=== PATIENT | male | born 1950 | race Caucasian/White ===

== ENCOUNTER 2019-02-05 13:47 | Day surgery (SDC) | payer MEDICARE ==
[2019-02-03 11:22] VITALS: BMI 30.3
[~2019-02-05 13:47] MED LIST: LACTATED RINGERS 1,000 ML IV SCH; LIDOCAINE 1% 20 ML VIAL (10MG/ML) FOR IV START INTRADERMA PRN
[2019-02-05 14:12] VITALS: TEMP 98.3
[2019-02-05] MEDS ORDERED: LIDOCAINE 1% INJ 10MG/ML (20 ML MDV) ONE (15:20)
[2019-02-05] MEDS ORDERED: PROPOFOL 10 MG/ML 20 ML VIAL IV ONE (15:20)
--- NOTE | 2019-02-05 15:50 | P.PCN ---
Date of Procedure: 02/05/19 Description of Procedure: BRIEF HISTORY: Patient is a pleasant 68-year-old male with multiple medical comorbidities who presents for outpatient upper endoscopy. The patient reports reflux which has been frequent since the beginning of the year. He was started on omeprazole 40 mg daily, however continues to report symptoms of regurgitation of stomach acid into his mouth which are occurring frequently. He denies any dysphagia or odynophagia. He denies any signs or symptoms of GI bleeding. PROCEDURE PERFORMED: Esophagogastroduodenoscopy with biopsy. PREOPERATIVE DIAGNOSIS: GERD. ESTIMATED BLOOD LOSS: Minimal. IV sedation per anesthesia. PROCEDURE: After informed consent was obtained, the patient was brought into the endoscopy unit. IV sedation was administered by Anesthesia under continuous monitoring. Initially the Olympus GIF-190 video endoscope was inserted into the mouth. Esophagus intubated without any difficulty. It was gradually advanced into the stomach and duodenum and carefully examined. The bulb and the second part of the duodenum appeared normal. The scope at this time was withdrawn to the stomach, adequately insufflated with air, and upon careful examination, mucosa of the antrum, body, cardia and the fundus appeared grossly normal except for diffuse p unctate erythema in the antrum and body suggestive of mild gastritis with biopsies taken. The scope was then withdrawn into the esophagus. The GE junction was located at 42 cm from the incisors and biopsies were taken given history of reflux. The esophagus appeared normal. There were no erosions or ulcerations seen and the patient tolerated the procedure well. IMPRESSION: 1. Mild gastritis, biopsied. 2. GE junction biopsied. RECOMMENDATIONS: The findings of this examination were discussed with the patient and his . Continue Prilosec therapy. Await pathology from biopsies. Have recommended the patient follow up in one to 2 weeks for results of biopsies and discussion on symptoms.
[2019-02-05 15:51] VITALS: RESP 18
[2019-02-05 16:07] VITALS: BP 149/70; PULSE 70
== END 2019-02-05 16:10 | disposition home or self-care (01) ==
LOC: ORWHC2ENDO 13:47
PROVIDERS: ATTEND Internal Medicine
DX: K21.0 Gastro-esophageal reflux disease with esophagitis (principal); K29.50 Unspecified chronic gastritis without bleeding; K31.9 Disease of stomach and duodenum, unspecified; Z79.82 Long term (current) use of aspirin; Z79.899 Other long term (current) drug therapy; I25.10 Atherosclerotic heart disease of native coronary artery without angina pectoris; I11.0 Hypertensive heart disease with heart failure; I50.9 Heart failure, unspecified; J44.9 Chronic obstructive pulmonary disease, unspecified; E78.5 Hyperlipidemia, unspecified; I25.2 Old myocardial infarction; E11.9 Type 2 diabetes mellitus without complications; Z90.49 Acquired absence of other specified parts of digestive tract
CPT/HCPCS: 88305; 43239; J2001; J2704

== ENCOUNTER 2019-06-01 20:20 | Emergency (ER) | payer MEDICARE ==
[2019-06-01 20:27] VITALS: BP 226/91; PULSE 60; RESP 18; TEMP 98.8
--- NOTE | 2019-06-01 21:20 | ED ---
Animal Bite HPI - General Chief Complaint: Animal Bite Stated Complaint: Tick Bite Time Seen by Provider: 06/01/19 20:47 Source: patient Mode of arrival: ambulatory Limitations: no limitations - History of Present Illness Initial Comments: Patient is 78-year-old male presents emergency Department with a tick bite. Patient reports that he noticed a tick bite earlier today on his forearm. Patient does have dogs living with him. Patient removed the tick and brought to the emergency department. Patient denies erythema or rash at the site of injury. Patient denies fever, nausea, vomiting, chest pain, chest tightness, chest palpitation, shortness of breath or arthralgias. Patient is suspecting that the organism is a dog tick. - Related Data Home Medications Medication Instructions Recorded Confirmed Aspirin 325 mg PO DAILY PRN 01/27/19 02/03/19 Macular Degeneration Vitamin 1 tab PO DIRECTED 01/27/19 02/05/19 Atenolol [Tenormin] 50 mg PO DAILY 02/03/19 02/05/19 Allergies Allergy/AdvReac Type Severity Reaction Status Date / Time No Known Allergies Allergy Verified 06/01/19 20:27 Review of Systems ROS Statement: Those systems with pertinent positive or pertinent negative responses have been documented in the HPI. ROS Other: All systems not noted in ROS Statement are negative. Past Medical History Past Medical History: Eye Disorder, GERD/Reflux, Hypertension Additional Past Medical History / Comment(s): dory eyes macular degeneration History of Any Multi-Drug Resistant Organisms: None Reported Past Surgical History: Cholecystectomy, Tonsillectomy Additional Past Surgical History / Comment(s): left caratacts Past Anesthesia/Blood Transfusion Reactions: No Reported Reaction Past Psychological History: No Psychological Hx Reported Smoking Status: Former smoker Past Alcohol Use History: None Reported Past Drug Use History: None Reported - Past Family History Mother Family Medical History: Cancer General Exam - General Exam Comments Initial Comments: General: Well-developed well-nourished distress HEENT: Normocephalic/atraumatic, PERLL, pharynx erythema, Neck: Supple, nontender, trachea midline Chest/Lungs: Normal respirations, no signs of respiratory distress clear to auscultation bilaterally no wheezes, rales, rhonchi Cardiac: Regular rate and rhythm, normal S1-S2, no murmurs rubs or gallops Abdomen/GI: Soft nontender, bowel sounds equal or quadrant x4, no guarding, no rebound no CVA tenderness Musculoskeletal: Nontender, full range of motion, no edema, strength equal bilaterally, Skin: Warmth, no rashes or lesions, no cyanosis or diaphoresis, approximately 2 mm small lesion where the tick was located on the skin Neurologic: AAO x 3, CN 2-12 intact, Psychiatric: Mood and affect normal, judgment normal Limitations: no limitations Course Vital Signs 06/01/19 20:25 Temperature 98.8 F Pulse Rate 60 Respiratory 18 Rate Blood Pressure 226/91 O2 Sat by Pulse 98 Oximetry Medical Decision Making - Medical Decision Making Patient is a 68-year-old male presents emergency Department with a doctor. Patient had already removed the tick and have brought for examination. The tick is all brown in color and it appears to be a toxic not a deer or wood tick. At this point I have low suspicion for possible Lyme disease infection. Patient will not be treated prophylactically for Lyme disease. Patient advised to return to emergency department for reevaluation if she develops a bull's-eye pattern rash, fever, chest palpitations or arthralgias. Patient advised to follow-up with primary care. Case discussed with physician. Disposition Clinical Impression: Tick bite Disposition: HOME SELF-CARE Condition: Stable Instructions (If sedation given, give patient instructions): Animal Bite (ED) Additional Instructions: Please follow for signs of infection such as fever, Bullseye pattern rash, chest palpitations or multiple joint aches. Please follow with primary care. Please return to emergency department if symptoms worsen. Is patient prescribed a controlled substance at d/c from ED?: No Referrals: Roger Mcmanus DO [Primary Care Provider] - 1-2 days Time of Disposition: 21:20
== END 2019-06-01 21:23 | disposition home or self-care (01) ==
LOC: EC 20:20
DX: S50.861A Insect bite (nonvenomous) of right forearm, initial encounter (principal); H35.30 Unspecified macular degeneration; I10 Essential (primary) hypertension; Z87.891 Personal history of nicotine dependence; Z79.899 Other long term (current) drug therapy; W57.XXXA Bitten or stung by nonvenomous insect and other nonvenomous arthropods, initial encounter
CPT/HCPCS: 99282

== ENCOUNTER → 2020-07-07 | Outpatient (CLI) | payer MEDICARE ==
--- NOTE | 2020-07-07 09:23 | FL ---
EXAMINATION TYPE: FL barium swallow DATE OF EXAM: 07/07/2020 CLINICAL HISTORY: GERD per order. History of recurrent epigastric pain despite attempts with differen t medication. History of endoscopy January 2019. TECHNIQUE: A double contrast esophagram is performed utilizing air and barium. A total of 19 second s of fluoroscopic time was utilized during procedure. 38 spot images saved to PACS. COMPARISON: None FINDINGS: The esophagus shows mild dysmotility with some abnormal secondary and tertiary contractions particularly when patient drinks laying prone. No evidence of fixed hiatal hernia or stricture note d. No suspicious intraluminal mass. No significant gastroesophageal reflux was seen during real time performance of this study. Cholecystectomy clips incidentally noted. IMPRESSION: Mild esophageal dysmotility otherwise unremarkable study.
== END | disposition home or self-care (01) ==
LOC: RADUSWWP 08:43
PROVIDERS: ATTEND Surgery Plastic and Reconstructive Surgery
DX: K22.4 Dyskinesia of esophagus (principal)
CPT/HCPCS: 74220

== ENCOUNTER 2020-09-01 06:53 | Day surgery (SDC) | payer MEDICARE ==
[2020-08-29 10:55] VITALS: BMI 30.3
--- NOTE | 2020-09-01 06:39 | P.GSHP ---
History of Present Illness H&P Date: 09/01/20 CHIEF COMPLAINT: GERD HISTORY OF PRESENT ILLNESS: The patient is a 69-year-old male who presents reports gastroesophageal reflux disease. Upper endoscopy was offered for further evaluation and management. PAST MEDICAL HISTORY: Please see list. PAST SURGICAL HISTORY: Please see list. MEDICATIONS: Please see list. ALLERGIES: Please see list. SOCIAL HISTORY: No illicit drug use FAMILY HISTORY: No reports of Crohn disease or ulcerative colitis. REVIEW OF ORGAN SYSTEMS: CONSTITUTIONAL: No reports of fevers or chills. GI: Denies any blood in stools or constipation. PHYSICAL EXAM: VITAL SIGNS: Stable GENERAL: Well-developed and pleasant in no acute distress. HEENT: No scleral icterus. Extraocular movements grossly intact. Moist buccal mucosa. NECK: Supple without lymphadenopathy. CHEST: Unlabored respirations. Equal bilateral excursions. CARDIOVASCULAR: Regular rate and rhythm. Distal 2+ pulses. ABDOMEN: Soft, nondistended. MUSCULOSKELETAL: No clubbing, cyanosis, or edema. ASSESSMENT: 1. Gastroesophageal reflux disease PLAN: 1. Recommend proceeding with an upper endoscopy Past Medical History Past Medical History: Eye Disorder, GERD/Reflux, Hypertension Additional Past Medical History / Comment(s): dory eyes macular degeneration History of Any Multi-Drug Resistant Organisms: None Reported Past Surgical History: Cholecystectomy, Tonsillectomy Additional Past Surgical History / Comment(s): left caratacts,EGD Past Anesthesia/Blood Transfusion Reactions: No Reported Reaction Smoking Status: Former smoker - Past Family History Mother Family Medical History: Cancer Medications and Allergies Home Medications Medication Instructions Recorded Confirmed Type Macular Degeneration Vitamin 1 tab PO DIRECTED 01/27/19 08/29/20 History atenoloL [Tenormin] 100 mg PO 0200 02/03/19 08/29/20 History Penicillin V Potassium [Pen Vee K] 500 mg PO QID 08/29/20 08/29/20 History Allergies Allergy/AdvReac Type Severity Reaction Status Date / Time No Known Allergies Allergy Verified 08/29/20 10:49
[~2020-09-01 06:53] MED LIST changes: -LIDOCAINE 1% 20 ML VIAL (10MG/ML) FOR IV START INTRADERMA PRN
[2020-09-01 07:26] VITALS: RESP 16; TEMP 97.3
[2020-09-01] MEDS ORDERED: LIDOCAINE 1% INJ 10MG/ML (20 ML MDV) ONE (08:01)
[2020-09-01] MEDS ORDERED: PROPOFOL 10 MG/ML 20 ML VIAL IV ONE (08:01)
--- NOTE | 2020-09-01 08:25 | P.PCN ---
Date of Procedure: 09/01/20 Description of Procedure: PREOPERATIVE DIAGNOSIS: Gastroesophageal reflux disease. Epigastric abdominal pain POSTOPERATIVE DIAGNOSIS: Gastroesophageal reflux disease. Epigastric abdominal pain Superficial gastric ulcer with recent bleeding Superficial duodenal ulcer with duodenitis without bleeding Gastroesophageal junction ulcer without bleeding OPERATION: Esophagogastroduodenoscopy with biopsies along antrum, duodenum, and GE junction SURGEON: Sarah Dominguez MD ANESTHESIA: MAC. INDICATIONS: The patient is a 69-year-old male who presents with a history of reflux disease and epigastric abdominal pain. Benefits and risks of the procedure were described. Informed consent was obtained. DESCRIPTION: The patient was brought into the endoscopy suite and laid in the left lateral decubitus position. An Olympus gastroscope was passed along the posterior oropharynx down to the distal esophagus where the squamocolumnar junction was encountered at 42 cm from the incisors. The stomach was entered and no bile reflux was found. Additional findings are listed below. Biopsies with cold forceps were obtained of the antrum. The first through third portion of the duodenum was examined. Retroflexion of the scope confirmed Hill grade 1 lower esophageal valve. The squamocolumnar junction demonstrated LA grade B erosive esophagitis. The stomach was desufflated. The patient tolerated the procedure well. FINDINGS: Squamocolumnar junction 42 cm from the incisors. Diaphragmatic hiatus at 42 cm. Hill grade 1 lower esophageal valve. LA grade B erosive esophagitis with ulceration Active duodenitis with superficial duodenal ulcers, 4 mm in size without bleeding. Chronic gastritis with recent bleed with superficial gastric ulcers and gastric body and antrum RECOMMENDATIONS: Start Carafate 1 g twice daily including omeprazole 40 mg daily Repeat upper endoscopy Plan - Discharge Summary Discharge Rx Participant: No New Discharge Prescriptions: New Sucralfate [Carafate] 1 gm PO BID #60 tablet Omeprazole [PriLOSEC] 40 mg PO DAILY #30 cap Continue Macular Degeneration Vitamin 1 tab PO DIRECTED atenoloL [Tenormin] 100 mg PO 0200 Penicillin V Potassium [Pen Vee K] 500 mg PO QID Discharge Medication List Macular Degeneration Vitamin 1 tab PO DIRECTED 01/27/19 [History] atenoloL [Tenormin] 100 mg PO 0200 02/03/19 [History] Penicillin V Potassium [Pen Vee K] 500 mg PO QID 08/29/20 [History] Omeprazole [PriLOSEC] 40 mg PO DAILY #30 cap 09/01/20 [Rx] Sucralfate [Carafate] 1 gm PO BID #60 tablet 09/01/20 [Rx] Follow up Appointment(s)/Referral(s): Sarah Dominguez MD [STAFF PHYSICIAN] - 09/13/20 Patient Instructions/Handouts: Diet for Stomach Ulcers and Gastritis (ED) Activity/Diet/Wound Care/Special Instructions: Avoid ibuprofen including NSAIDs history of ulcers Discharge Disposition: HOME SELF-CARE
[2020-09-01 08:38] VITALS: BP 152/70; PULSE 52
== END 2020-09-01 09:13 | disposition home or self-care (01) ==
LOC: ORWHC2ENDO 06:53
PROVIDERS: ATTEND Surgery Plastic and Reconstructive Surgery
DX: K25.4 Chronic or unspecified gastric ulcer with hemorrhage (principal); K26.4 Chronic or unspecified duodenal ulcer with hemorrhage; K29.80 Duodenitis without bleeding; K29.51 Unspecified chronic gastritis with bleeding; K21.00 Gastro-esophageal reflux disease with esophagitis, without bleeding; K22.11 Ulcer of esophagus with bleeding; H35.30 Unspecified macular degeneration; I10 Essential (primary) hypertension; Z90.49 Acquired absence of other specified parts of digestive tract; Z90.89 Acquired absence of other organs; Z98.42 Cataract extraction status, left eye; Z98.890 Other specified postprocedural states; Z87.891 Personal history of nicotine dependence; Z79.899 Other long term (current) drug therapy; Z97.2 Presence of dental prosthetic device (complete) (partial); Z80.9 Family history of malignant neoplasm, unspecified
CPT/HCPCS: 88305; 43239; J2001; J2704

== ENCOUNTER 2021-02-08 09:59 | Day surgery (SDC) | payer MEDICARE ==
[2021-02-03 12:51] VITALS: BMI 30.3
--- NOTE | 2021-02-08 04:09 | P.GSHP ---
History of Present Illness H&P Date: 02/08/21 CHIEF COMPLAINT: GERD HISTORY OF PRESENT ILLNESS: The patient is a 70-year-old male who presents reports gastroesophageal reflux disease. Upper endoscopy was offered for further evaluation and management. PAST MEDICAL HISTORY: Please see list. PAST SURGICAL HISTORY: Please see list. MEDICATIONS: Please see list. ALLERGIES: Please see list. SOCIAL HISTORY: No illicit drug use FAMILY HISTORY: No reports of Crohn disease or ulcerative colitis. REVIEW OF ORGAN SYSTEMS: CONSTITUTIONAL: No reports of fevers or chills. GI: Denies any blood in stools or constipation. PHYSICAL EXAM: VITAL SIGNS: Stable GENERAL: Well-developed and pleasant in no acute distress. HEENT: No scleral icterus. Extraocular movements grossly intact. Moist buccal mucosa. NECK: Supple without lymphadenopathy. CHEST: Unlabored respirations. Equal bilateral excursions. CARDIOVASCULAR: Regular rate and rhythm. Distal 2+ pulses. ABDOMEN: Soft, nondistended. MUSCULOSKELETAL: No clubbing, cyanosis, or edema. ASSESSMENT: 1. Gastroesophageal reflux disease PLAN: 1. Recommend proceeding with an upper endoscopy Past Medical History Past Medical History: Eye Disorder, GERD/Reflux, Hypertension Additional Past Medical History / Comment(s): dory eyes macular degeneration History of Any Multi-Drug Resistant Organisms: None Reported Past Surgical History: Cholecystectomy, Tonsillectomy Additional Past Surgical History / Comment(s): left caratacts,EGD Past Anesthesia/Blood Transfusion Reactions: No Reported Reaction Smoking Status: Former smoker - Past Family History Mother Family Medical History: Cancer Medications and Allergies Home Medications Medication Instructions Recorded Confirmed Type Macular Degeneration Vitamin 1 tab PO DIRECTED 01/27/19 02/03/21 History atenoloL [Tenormin] 100 mg PO 0200 02/03/19 02/03/21 History Sucralfate [Carafate] 1 gm PO ACHS #120 tab 09/27/20 02/03/21 Rx Omeprazole [PriLOSEC] 40 mg PO BID 02/03/21 02/03/21 History lisinopriL [Zestril] 20 mg PO HS 02/03/21 02/03/21 History Allergies Allergy/AdvReac Type Severity Reaction Status Date / Time No Known Allergies Allergy Verified 02/03/21 12:45
[~2021-02-08 09:59] MED LIST changes: +LIDOCAINE 1% (10MG/ML) FOR IV START INTRADERMA PRN
[2021-02-08 10:43] VITALS: TEMP 97.9
[2021-02-08] MEDS ORDERED: PROPOFOL 10 MG/ML 20 ML VIAL IV ONE (11:03)
[2021-02-08] MEDS ORDERED: LIDOCAINE 1% INJ 10MG/ML (20 ML MDV) ONE (11:03)
--- NOTE | 2021-02-08 11:27 | P.PCN ---
Date of Procedure: 02/08/21 Description of Procedure: PREOPERATIVE DIAGNOSIS: Gastric ulcers Gastritis Epigastric abdominal pain Gastroesophageal reflux disease POSTOPERATIVE DIAGNOSIS: Gastroesophageal reflux disease with esophagitis Gastritis Epigastric abdominal pain OPERATION: Esophagogastroduodenoscopy with biopsies along antrum and distal esophagus SURGEON: Sarah Dominguez MD ANESTHESIA: MAC. INDICATIONS: The patient is a 70-year-old male who presents with a history of reflux disease. Benefits and risks of the procedure were described. Informed consent was obtained. DESCRIPTION: The patient was brought into the endoscopy suite and laid in the left lateral decubitus position. An Olympus gastroscope was passed along the posterior oropharynx down to the distal esophagus where the squamocolumnar junction was encountered at 40 cm from the incisors. The stomach was entered and no bile reflux was found. Additional findings are listed below. Biopsies with cold forceps were obtained of the antrum. The first through third portion of the duodenum was examined and unremarkable. Retroflexion of the scope confirmed Hill grade 2 lower esophageal valve. The squamocolumnar junction demonstrated LA grade C erosive esophagitis. The stomach was desufflated. The patient tolerated the procedure well. FINDINGS: Squamocolumnar junction 40 cm from the incisors. Diaphragmatic hiatus at 40 cm. Hill grade 4 lower esophageal valve. LA grade C erosive esophagitis with cold forceps biopsies obtained from distal esophagus No active duodenitis. Chronic gastritis RECOMMENDATIONS: Upper endoscopy as needed. For epigastric abdominal pain, manometry recommended Plan - Discharge Summary Discharge Rx Participant: No New Discharge Prescriptions: Continue Macular Degeneration Vitamin 1 tab PO DIRECTED atenoloL [Tenormin] 100 mg PO 0200 Sucralfate [Carafate] 1 gm PO ACHS #120 tab lisinopriL [Zestril] 20 mg PO HS Omeprazole [PriLOSEC] 40 mg PO BID Discharge Medication List Macular Degeneration Vitamin 1 tab PO DIRECTED 01/27/19 [History] atenoloL [Tenormin] 100 mg PO 0200 02/03/19 [History] Sucralfate [Carafate] 1 gm PO ACHS #120 tab 09/27/20 [Rx] Omeprazole [PriLOSEC] 40 mg PO BID 02/03/21 [History] lisinopriL [Zestril] 20 mg PO HS 02/03/21 [History] Follow up Appointment(s)/Referral(s): Sarah Dominguez MD [STAFF PHYSICIAN] - 02/21/21 Patient Instructions/Handouts: Gastritis (ED), Diet for Stomach Ulcers and Gastritis (GEN) Discharge Disposition: HOME SELF-CARE
[2021-02-08 11:43] VITALS: BP 132/76; PULSE 47; RESP 18
== END 2021-02-08 12:14 | disposition home or self-care (01) ==
LOC: ORWHC2ENDO 09:59
PROVIDERS: ATTEND Surgery Plastic and Reconstructive Surgery
DX: K21.00 Gastro-esophageal reflux disease with esophagitis, without bleeding (principal); K22.10 Ulcer of esophagus without bleeding; K29.50 Unspecified chronic gastritis without bleeding; K44.9 Diaphragmatic hernia without obstruction or gangrene; H35.30 Unspecified macular degeneration; I10 Essential (primary) hypertension; Z90.49 Acquired absence of other specified parts of digestive tract; Z90.89 Acquired absence of other organs; Z98.42 Cataract extraction status, left eye; Z98.890 Other specified postprocedural states; Z87.891 Personal history of nicotine dependence; Z79.899 Other long term (current) drug therapy; Z97.2 Presence of dental prosthetic device (complete) (partial); Z80.9 Family history of malignant neoplasm, unspecified
CPT/HCPCS: 88305; 43239; J2001; J2704

== ENCOUNTER → 2021-03-15 | Outpatient (CLI) | payer MEDICARE ==
[2021-03-15 14:25] LABS: HCT 41.9 % (39.0-53.0); HGB 14.1 gm/dL (13.0-17.5); MCH 30.6 pg (25.0-35.0); MCHC 33.6 g/dL (31.0-37.0); MCV 90.9 fL (80.0-100.0); Mean Platelet Volume 8.1; Platelet Count 197 k/uL (150-450); WBC 8.4 k/uL (3.8-10.6)
== END | disposition home or self-care (01) ==
LOC: LABPAT 13:44
PROVIDERS: ATTEND Surgery Plastic and Reconstructive Surgery
DX: Z01.818 Encounter for other preprocedural examination (principal)
CPT/HCPCS: 85027

== ENCOUNTER 2021-03-17 10:24 | Observation (INO) | payer MEDICARE ==
--- NOTE | 2021-03-17 05:45 | P.GSHP ---
History of Present Illness H&P Date: 03/17/21 CHIEF COMPLAINT: Paraesophageal hiatal hernia with gastroesophageal reflux disease. HISTORY OF PRESENT ILLNESS: The patient is a 70-year-old male who presents with paraesophageal hiatal hernia. He has completed an esophageal manometry including upper endoscopy workup. Now he presents for surgical intervention. PAST MEDICAL HISTORY: Please see list. PAST SURGICAL HISTORY: Please see list. MEDICATIONS: Please see list. ALLERGIES: Please see list. SOCIAL HISTORY: No illicit drug use FAMILY HISTORY: No reports of Crohn disease or ulcerative colitis. REVIEW OF ORGAN SYSTEMS: CONSTITUTIONAL: No reports of fevers or chills. GI: Denies any blood in stools or constipation. PHYSICAL EXAM: VITAL SIGNS: Stable GENERAL: Well-developed pleasant and in no acute distress. HEENT: No scleral icterus. Extraocular movements grossly intact. Moist buccal mucosa. NECK: Supple without lymphadenopathy. CHEST: Unlabored respirations. Equal bilateral excursions. CARDIOVASCULAR: Regular rate and rhythm. Distal 2+ pulses. ABDOMEN: Soft, nondistended. No peritoneal signs. MUSCULOSKELETAL: No clubbing, cyanosis, or edema. SKIN: Well-perfused. Good skin turgor. MANOMETRY: Shows no evidence of achalasia or scleroderma. Presence of esophagogastric junction outflow obtruction ECHO: Completed at [facility] 2020 with stress test completed. ASSESSMENT: 1. Diaphragmatic paraesophageal hiatal hernia with severe gastroesophageal reflux disease. PLAN: 1. Recommend proceeding with a robotic paraesophageal hiatal hernia with possible mesh. 2. Benefits and risks of surgical intervention was discussed including possibility of open technique. 3. Inpatient hospitalization recommended of 2 nights 4. DVT prophylaxis. 5. Antibiotic prophylaxis. 6. He has also completed a very low caloric high-protein diet to address underlying hepatomegaly. 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,dory eyes macular degeneration,gastric ulcers History of Any Multi-Drug Resistant Organisms: None Reported Past Surgical History: Cholecystectomy, Tonsillectomy Additional Past Surgical History / Comment(s): left caratacts,EGDs Past Anesthesia/Blood Transfusion Reactions: Previous Problems w/ Anesthesia Additional Past Anesthesia/Blood Transfusion Reaction / Comment(s): has general achiness after anesthesia,no hx blood transfusion Smoking Status: Former smoker - Past Family History Mother Family Medical History: Cancer Medications and Allergies Home Medications Medication Instructions Recorded Confirmed Type Macular Degeneration Vitamin 1 tab PO DIRECTED 01/27/19 03/13/21 History atenoloL [Tenormin] 100 mg PO 0200 02/03/19 03/13/21 History Omeprazole [PriLOSEC] 40 mg PO QAM 02/03/21 03/13/21 History lisinopriL [Zestril] 20 mg PO HS 02/03/21 03/13/21 History Sucralfate [Carafate] 1 gm PO BID 02/28/21 03/13/21 History Allergies Allergy/AdvReac Type Severity Reaction Status Date / Time No Known Allergies Allergy Verified 03/13/21 10:26
[~2021-03-17 10:24] MED LIST changes: +CHLORHEXIDINE GLUCONATE 15 ML CUP MUCOUS MEM PRN; +DEXAMETHASONE SOD PHOSPHATE 4 MG/ML 1 ML VIAL IV ONE; +GABAPENTIN 300 MG CAP PO PRN; +HEPARIN SODIUM,PORCINE/PF 5,000 UNIT/0.5 ML SYRINGE SQ PRN; +HYDROmorphone 0.5 MG/0.5 ML SYRINGE IVP PRN; -LACTATED RINGERS 1,000 ML IV SCH; +MELOXICAM 7.5 MG TAB PO PRN; +MIDAZOLAM 2 MG/2 ML VIAL IV PRN; +ONDANSETRON 4 MG/2 ML VIAL IVP ONE; +PANTOPRAZOLE 40 MG/10 ML VIAL IVP PRN; +TAMSULOSIN 0.4 MG CAP.ER.24H PO PRN
[2021-03-17] MEDS: LACTATED RINGERS 1,000 ML IV SCH (11:35)
[2021-03-17 11:36] LABS: Basophils # (A) 0.1 k/uL (0-0.2); Basophils % (A) 1 %; Eosinophils # (A) 0.5 k/uL (0-0.7); Eosinophils % (A) 6 %; HGB 15.2 gm/dL (13.0-17.5); Lymphocytes # (A) 2.8 k/uL (1.0-4.8); Lymphocytes % (A) 34 %; MCHC 34.6 g/dL (31.0-37.0); MCV 89.8 fL (80.0-100.0); Mean Platelet Volume 8.2; Monocytes # (A) 0.5 k/uL (0-1.0); Monocytes % (A) 6 %; Neutrophils # (A) 4.1 k/uL (1.3-7.7); Neutrophils % (A) 50 %; Platelet Count 211 k/uL (150-450); RDW 12.8 % (11.5-15.5); WBC 8.3 k/uL (3.8-10.6)
[2021-03-17] MEDS: ACETAMINOPHEN TAB 500 MG TAB PO PRN (11:44)
[2021-03-17] MEDS ORDERED: ePHEDrine SULFATE/0.9% NACL/PF 50 MG/5 ML SYRINGE IV ONE (11:53)
[2021-03-17] MEDS ORDERED: fentaNYL (PF) 50 MCG/ML 2 ML AMP ONE (11:53)
[2021-03-17] MEDS ORDERED: GLYCOPYRROLATE 0.2 MG/ML 2 ML VIAL ONE (11:53)
[2021-03-17] MEDS ORDERED: ROCURONIUM 10 MG/ML (5 ML VIAL) IV ONE (11:53)
[2021-03-17] MEDS ORDERED: NEOSTIGMINE 1 MG/ML 10 ML VIAL ONE (11:53)
[2021-03-17] MEDS ORDERED: PROPOFOL 10 MG/ML 20 ML VIAL IV ONE (11:53)
[2021-03-17] MEDS ORDERED: LIDOCAINE 1% INJ 10MG/ML (20 ML MDV) ONE (11:53)
[2021-03-17] MEDS ORDERED: ONDANSETRON 4 MG/2 ML VIAL ONE (11:53)
[2021-03-17] MEDS ORDERED: SUCCINYLCHOLINE CHLORIDE VIAL 200 MG/10 ML VIAL IV ONE (11:53)
[2021-03-17] MEDS ORDERED: MIDAZOLAM 2 MG/2 ML VIAL ONE (11:53)
[2021-03-17 11:54] LABS: Albumin 4.4 g/dL (3.5-5.0); Calcium 9.6 mg/dL (8.4-10.2); Potassium 4.3 mmol/L (3.5-5.1); Total Bilirubin 0.8 mg/dL (0.2-1.3); Total Protein 7.5 g/dL (6.3-8.2)
[2021-03-17] MEDS ORDERED: LIDOCAINE 1%-EPI 1:100,000 20 ML VIAL SQ ONE (11:58)
[2021-03-17] MEDS ORDERED: LACTATED RINGERS 1,000 ML IV ONE (14:00)
[2021-03-17] MEDS ORDERED: diphenhydrAMINE 50 MG/ML 1 ML VIAL IVP PRN (14:18)
[2021-03-17] MEDS ORDERED: HYDROmorphone 1 MG/ML 1 ML SYRINGE IVP PRN (14:18)
[2021-03-17] MEDS ORDERED: NALOXONE 0.4 MG/ML 1 ML VIAL IV PRN (14:18)
[2021-03-17] MEDS ORDERED: HYOSCYAMINE ORAL DROPS 1.875 MG/15 ML BOTTLE PO PRN (14:18)
[2021-03-17] MEDS ORDERED: SODIUM CHLORIDE 0.9% 1,000 ML IV ONE (14:24)
[2021-03-17] MEDS ORDERED: DEXAMETHASONE SOD PHOSPHATE 10 MG/ML 1 ML VIAL IV PRN (14:24)
[2021-03-17 15:30] VITALS: BMI 30.5
[2021-03-17] MEDS ORDERED: ACETAMINOPHEN IV (For NPO) 1,000 MG in EMPTY BAG 1 BAG IVPB ONE (15:30)
[2021-03-17] MEDS: ALBUTEROL NEBULIZED 2.5 MG/3 ML INHALATION SCH ×2 (15:57→20:15)
--- NOTE | 2021-03-17 16:34 | FL ---
EXAMINATION TYPE: FL esophagus cervic/pharynx DATE OF EXAM: 03/17/2021 LIMITED Esophagram: CLINICAL HISTORY: Recent fundoplication TECHNIQUE: Limited esophagram is performed utilizing Omnipaque. Fluoroscopy time: 73 seconds Images: 17 FINDINGS: The patient swallowed contrast without difficulty or delay. Esophagus dilates to normal ca liber is normal contour to the distal esophagus. Note is made of some floating debris within the esop hagus during the exam Tertiary contractions are evident. There is moderate to severe hesitancy of contrast passing through the postsurgical mediastinum. No extravasation of contrast is evident.. IMPRESSION: No evidence of leak or significant obstruction status post Dwayne fundoplication surgery.
[2021-03-17] MEDS: 0.9% NACL WITH KCL 20 MEQ/L 1,000 ML IV SCH ×2 (17:20→21:43)
[2021-03-17] MEDS ORDERED: KETOROLAC 15 MG/ML 1 ML VIAL IVP SCH (18:00)
[2021-03-17] MEDS: METOCLOPRAMIDE 5 MG/ML 2 ML VIAL IVP SCH (18:10)
[2021-03-17] MEDS: ONDANSETRON 4 MG/2 ML VIAL IVP SCH (18:10)
[2021-03-17] MEDS: SIMETHICONE 40 MG/0.6 ML DROPS 2,000 MG/30 ML BOTTLE PO SCH (18:11)
[2021-03-17] MEDS: DEXAMETHASONE SOD PHOSPHATE 4 MG/ML 1 ML VIAL IV SCH (18:12)
[2021-03-17] MEDS ORDERED: lisinopriL 20 MG TAB PO SCH (21:00)
[2021-03-18] MEDS: SIMETHICONE 40 MG/0.6 ML DROPS 2,000 MG/30 ML BOTTLE PO SCH ×3 (01:46→11:58)
[2021-03-18] MEDS: DEXAMETHASONE SOD PHOSPHATE 4 MG/ML 1 ML VIAL IV SCH ×3 (01:46→11:56)
[2021-03-18] MEDS: ONDANSETRON 4 MG/2 ML VIAL IVP SCH ×3 (01:46→11:47)
[2021-03-18] MEDS: METOCLOPRAMIDE 5 MG/ML 2 ML VIAL IVP SCH ×3 (01:46→11:56)
[2021-03-18] MEDS ORDERED: atenoloL 50 MG TAB PO SCH (02:00)
[2021-03-18] MEDS: 0.9% NACL WITH KCL 20 MEQ/L 1,000 ML IV SCH (04:37)
[2021-03-18] MEDS: LACTATED RINGERS 1,000 ML IV SCH (05:36)
[2021-03-18 06:44] LABS: Basophils % (A) 0 %; Eosinophils % (A) 0 %; HCT 41.8 % (39.0-53.0); HGB 13.9 gm/dL (13.0-17.5); Lymphocytes # (A) 1.2 k/uL (1.0-4.8); Lymphocytes % (A) 10 %; MCH 30.6 pg (25.0-35.0); MCHC 33.4 g/dL (31.0-37.0); MCV 91.8 fL (80.0-100.0); Mean Platelet Volume 8.6; Monocytes # (A) 0.5 k/uL (0-1.0); Monocytes % (A) 5 %; Neutrophils # (A) 9.7 k/uL (1.3-7.7); Neutrophils % (A) 85 %; Platelet Count 211 k/uL (150-450); RBC 4.56 m/uL (4.30-5.90); WBC 11.5 k/uL (3.8-10.6)
[2021-03-18] MEDS ORDERED: 0.9% NACL WITH KCL 20 MEQ/L 1,000 ML IV SCH (08:00)
[2021-03-18] MEDS: ALBUTEROL NEBULIZED 2.5 MG/3 ML INHALATION SCH ×3 (08:52→16:23)
[2021-03-18] MEDS ORDERED: PANTOPRAZOLE 40 MG/10 ML VIAL IV SCH (09:00)
[2021-03-18] MEDS ORDERED: ENOXAPARIN 40 MG/0.4 ML SYRINGE SQ SCH (09:00)
[2021-03-18 09:13] LABS: African American GFR (CKD) 64.5 (60.0-200.0); Anion Gap 10.1 mmol/L (4.00-12.00); Calcium 8.6 mg/dL (8.7-10.3); Carbon Dioxide 25.9 mmol/L (21.6-31.8); Magnesium 1.9 mg/dL (1.5-2.4); Non-African American GFR(CKD) 55.7 (60.0-200.0); Phosphorus 2.6 mg/dL (2.4-5.1); Potassium 5.1 mmol/L (3.5-5.5)
[2021-03-18 12:14] VITALS: BP 167/78; PULSE 53; RESP 16; TEMP 97.3
[2021-03-18] MEDS ORDERED: ACETAMINOPHEN TAB 500 MG TAB PO PRN (13:52)
--- NOTE | 2021-03-18 14:00 | P.OP ---
Date of Procedure: 03/18/21 Description of Procedure: SURGEON: HEIDI HORTON MD PREOPERATIVE DIAGNOSES: 1. Symptomatic paraesophageal diaphragmatic hiatal hernia 2. Gastroesophageal reflux disease. 3. Hypertensive heart disease 4. History of gastric ulcers 5. Esophageal dysmotility with ineffective esophageal motility 6. Dysphagia 7. Atypical chest pain 8. Esophagogastro junction obstruction POSTOPERATIVE DIAGNOSES: 1. Paraesophageal midline diaphragmatic hernia, 3 cm, without incarceration. 2. Gastroesophageal reflux disease. 3. Hypertensive heart disease 4. History of gastric ulcers 5. Esophageal dysmotility with ineffective esophageal motility 6. Dysphagia 7. Atypical chest pain 8. Mediastinal lipoma 9. Esophagogastro junction obstruction OPERATION: 1. Robotic-assisted da Usha Xi laparoscopic repair of incarcerated paraesophageal hiatal hernia, 4 x 6 cm, with [place] Biopatch A 8 x 8 cm. 2. Intraoperative esophagogastroduodenoscopy 3. Placement of 56-Y[place]i bougie for esophageal dysmotility ANESTHESIA: General with local anesthetic. ESTIMATED BLOOD LOSS: 5 mL SPECIMENS REMOVED: None COMPLICATIONS: None. Condition: stable Disposition: floor FINDINGS: 1. Midline incarcerated paraesophageal hiatal hernia 4 x 6 cm 2. Intraoperative upper endoscopy confirms complete closure of hiatal hernia from Hill grade 3 to Hill grade 1 3. Intraesophageal length over 2 cm INDICATIONS: The patient is a 70 year-old male who presents withgastroesophageal reflux disease poorly controlled despite medications, and a symptomatic diaphragmatic hiatal hernia. Preoperative workup including upper endoscopy demonstrated a sliding hiatal hernia. The patient completed an esophageal manometry. Given the severity of symptoms, the patient had elected for surgical intervention. Benefits and risks including bleeding, infection, recurrence, dysphagia, injury to the lung, need for further surgery was described at length. Informed consent was obtained. DESCRIPTION: The patient was brought into the operating room and placed in supine position. Preoperatively the patient had received heparin subcutaneously for DVT prophylaxis. After general induction, the abdomen was prepped and draped in standard sterile fashion. The patient had previously voided prior to coming to the opera ting room. Ioban draping was placed along the abdomen. A timeout protocol was confirmed with the surgical team, for which the patient's name, procedure to be performed including DVT prophylaxis with bilateral SCDs, and preoperative antibiotics were also confirmed. A robotic da Usha Xi system was prepped and primed. At 12 cm from the xiphoid to just below the umbilicus, proposed port sites were marked with indelible marker along the left axillary line, left mid-clavicular line with each ports were marked 10 cm from each other. A 5 mm 0 degrees laparoscopic trocar entry was performed along the left upper quadrant. The abdomen was insufflated to 15 mmHg pressure was tolerated well. Diagnostic laparoscopy demonstrated no injury to bowel, viscera, or mesentery. No injury had occurred to the small bowel or viscera. The liver was smooth consistent with two-week high-protein low-carb diet. Previous trochar sites from cholecystectomy were used. Next, one 8 mm robotic port was placed along the right upper abdomen. An 8-mm port was were placed along the right lateral lateral abdominal wall. The camera 8-mm port was maintained along the epigastrium. Another 12 mm port was placed along the left upper abdominal wall after exchanging the 5 mm port. Please note that the ports were placed at least 20 cm away from the target anatomy. Care was taken to check that each robotic arm were safely away from collision with the bed or the patient. At the epigastrium, a medium sized Raudel liver retractor was placed under direct visualization with the [employer] Pricing Coordinator placed under the right shoulder of the patient. All robotic arms were used. The patient was repositioned in reverse Trendelenburg position at 21-degrees after lowering the bed. The robot was docked above the right side of the patient. Using a grasper for arm 3, a grasper for arm 1, including vessel sealer for arm 2, the robotic system was docked and primed as described. Instruments were interchanged by the oncology physician assistant. I had sat at the console. Moderate dense intra-abdominal fat was found along the GE junction. The gastrohepatic ligament was cleaved using a vessel sealer. Next, the phrenoesophageal ligament was mobilized and the distal esophagus was mobilized circumferentially. The left and right crura was identified. Circumferentially, the hernia sac was excised and brought into the peritoneal cavity. Moderate dissection into the mediastinum was performed to release the esophagus into the abdominal cavity. The paraesophageal hiatal hernia sac was also incised and divided from the esophagus. Care was taken to avoid any gastrotomy. The measured defect was consistent with 6 cm axial length and 4 cm in width. After dissection, the distal esophagus of 2+ cm was brought into the abdominal cavity. Esophagogastro junction was caused by a mediastinal tumor 3 cm that was cleared from the mediastinum and please with into the abdominal cavity. Once the hiatus and crura was dissected, 2-0 VLOC nonabsorbable suture was placed to reapproximate the diaphragmatic hiatus posteriorly. To buttress the repair, a [place] Biopatch A was prepared along the back table and cut in half of a yu-hole fashion as to reinforce the repair as an underlay. The mesh was placed along the crural repair and tagged using horizontal mattress sutures using 2-0 VLOC. I went to the head of the bed to perform intraoperative esophagogastroduodenoscopy and placement of a 56Fr bougie. The bougie was passed along the posterior oropharynx into the stomach to address pre-existing esophageal dysmotility for 2 minutes then removed. An Olympus gastroscope was passed through posterior oropharynx. Retroflexion of the scope confirmed a Hill grade 1 lower esophageal valve. 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 The stomach had been desufflated. No evidence of leaks were found of the esophagus or stomach. The GI tract with desufflated This concluded the endoscopic portion of the case. The robot was undocked from the patient. I re-scrubbed into the case. All instruments and pneumoperitoneum and specimens were evacuated from the abdominal cavity. Incisions were reapproximated using 4-0 Monocryl in an interrupted subcuticular fashion. Liquid glue was applied to the skin. Local anesthetic was infiltrated in all wounds for postop analgesia. At the end of the procedure, needle, sponge, and instrument count was verified correct by the surgical sales representative. The patient had tolerated the procedure well and was taken to the postanesthesia unit in stable condition.
[2021-03-18] MEDS: ACETAMINOPHEN TAB 500 MG TAB PO PRN (14:04)
--- NOTE | 2021-03-18 14:11 | P.DS ---
Providers Date of admission: 03/17/21 14:19 Expected date of discharge: 03/18/21 Attending physician: Sarah Dominguez Consults: 03/17/21 05:49 Consult Physician Routine Consulting Provider: [facility] Consult Reason/Comments: [facility] Do you want consulting provider notified?: Yes Primary care physician: Roger Mcmanus - Discharge Diagnosis(es) (1) Esophagogastric junction outflow obstruction Current Visit: Yes Status: Acute (2) Gastroesophageal reflux Current Visit: Yes Status: Acute (3) Hypertensive heart disease Current Visit: Yes Status: Acute (4) Incarcerated hiatal hernia Current Visit: Yes Status: Acute Hospital Course: POSTOPERATIVE DIAGNOSES: 1. Paraesophageal midline diaphragmatic hernia 4 x 6 cm with incarceration. 2. Gastroesophageal reflux disease. 3. Hypertensive heart disease 4. History of gastric ulcers 5. Esophageal dysmotility with ineffective esophageal motility 6. Dysphagia 7. Atypical chest pain 8. Mediastinal lipoma 9. Esophagogastro junction obstruction COURSE: The patient is a 70 year-old male who presents withgastroesophageal reflux disease poorly controlled despite medications, and a symptomatic diaphragmatic hiatal hernia. Preoperative workup including upper endoscopy demonstrated a sliding hiatal hernia. The patient completed an esophageal manometry. Given the severity of symptoms, the patient had elected for surgical intervention. He underwent robotic repair of incarcerated paraesophageal hiatal hernia. Postoperatively, he had an esophagram demonstrating mild obstruction. Patient was tolerating liquids without any dysphagia. He reports his pre- existing atypical chest pain had resolved following surgery. PHYSICAL EXAM: VITAL SIGNS: Stable GENERAL: Well-developed pleasant and in no acute distress. HEENT: No scleral icterus. Extraocular movements grossly intact. Moist buccal mucosa. NECK: Supple without lymphadenopathy. CHEST: Unlabored respirations. Equal bilateral excursions. CARDIOVASCULAR: Regular rate and rhythm. Distal 2+ pulses. ABDOMEN: Incisions intact. MUSCULOSKELETAL: No clubbing, cyanosis, or edema. SKIN: Well-perfused. Good skin turgor. BARIUM SWALLOW: Independent review demonstrating contrast through the GE junction serosa stomach. No recurrent hiatal hernia identified. Presence of tertiary contractions noted. This is my independent interpretation. ASSESSMENT: 1. Diaphragmatic paraesophageal hiatal hernia with incarceration. PLAN: 1. Discharge home. Discharge diet completely reviewed. 2. All questions addressed. Vital Signs Temp 97.3 F L 03/18/21 11:50 Pulse 53 L 03/18/21 11:50 Resp 16 03/18/21 11:50 BP 167/78 03/18/21 11:50 Pulse Ox 98 03/18/21 11:50 Intake & Output 03/17/21 03/18/21 03/18/21 18:59 06:59 18:59 Intake Total 1850 2170 Output Total 5 Balance 1845 2170 Weight 105 kg 105 kg Intake: IV 1850 Intake, IV Titration 1850 Amount 0.9% NaCl with KCl 20 Meq 1650 /l 1,000 ml @ 150 mls/hr IV .[id number] RAJANI Rx#: [id number] ceFAZolin 2 gm In Sodium 200 Chloride 0.9% 50 ml @ 100 mls/hr IVPB Q8H RAJANI Rx#: [id number] Oral 320 Output: Estimated Blood Loss 5 Other: # Voids 3 Laboratory Last Values WBC 11.5 k/uL (3.8-10.6) H 03/18/21 04:54 RBC 4.56 m/uL (4.30-5.90) 03/18/21 04:54 Hgb 13.9 gm/dL (13.0-17.5) 03/18/21 04:54 Hct 41.8 % (39.0-53.0) 03/18/21 04:54 MCV 91.8 fL (80.0-100.0) 03/18/21 04:54 MCH 30.6 pg (25.0-35.0) 03/18/21 04:54 MCHC 33.4 g/dL (31.0-37.0) 03/18/21 04:54 RDW 13.0 % (11.5-15.5) 03/18/21 04:54 Plt Count 211 k/uL (150-450) 03/18/21 04:54 MPV 8.6 03/18/21 04:54 Neutrophils % 85 % 03/18/21 04:54 Lymphocytes % 10 % 03/18/21 04:54 Monocytes % 5 % 03/18/21 04:54 Eosinophils % 0 % 03/18/21 04:54 Basophils % 0 % 03/18/21 04:54 Neutrophils # 9.7 k/uL (1.3-7.7) H 03/18/21 04:54 Lymphocytes # 1.2 k/uL (1.0-4.8) 03/18/21 04:54 Monocytes # 0.5 k/uL (0-1.0) 03/18/21 04:54 Eosinophils # 0.0 k/uL (0-0.7) 03/18/21 04:54 Basophils # 0.0 k/uL (0-0.2) 03/18/21 04:54 Sodium 139 mmol/L (135-145) 03/18/21 04:54 Potassium 5.1 mmol/L (3.5-5.5) 03/18/21 04:54 Chloride 103 mmol/L (96-109) 03/18/21 04:54 Carbon Dioxide 25.9 mmol/L (21.6-31.8) 03/18/21 04:54 Anion Gap 10.10 mmol/L (4.00-12.00) 03/18/21 04:54 BUN 23.0 mg/dL (9.0-27.0) 03/18/21 04:54 Creatinine 1.3 mg/dL (0.6-1.5) 03/18/21 04:54 Est GFR (CKD-EPI)AfAm 64.5 (60.0-200.0) 03/18/21 04:54 Est GFR (CKD-EPI)NonAf 55.7 (60.0-200.0) L 03/18/21 04:54 Glucose 102 mg/dL (74-99) H 03/17/21 11:25 Calcium 8.6 mg/dL (8.7-10.3) L 03/18/21 04:54 Phosphorus 2.6 mg/dL (2.4-5.1) 03/18/21 04:54 Magnesium 1.9 mg/dL (1.5-2.4) 03/18/21 04:54 Total Bilirubin 0.8 mg/dL (0.2-1.3) 03/17/21 11:25 AST 31 U/L (17-59) 03/17/21 11:25 ALT 24 U/L (4-49) 03/17/21 11:25 Alkaline Phosphatase 53 U/L (38-126) 03/17/21 11:25 Total Protein 7.5 g/dL (6.3-8.2) 03/17/21 11:25 Albumin 4.4 g/dL (3.5-5.0) 03/17/21 11:25 Coronavirus (PCR) Not Detected (Not Detectd) 03/17/21 14:17 Procedures: OPERATION: 1. Robotic-assisted da Usha Xi laparoscopic repair of incarcerated paraesophageal hiatal hernia, 4 x 6 cm, with [place] Biopatch A 8 x 8 cm. 2. Intraoperative esophagogastroduodenoscopy 3. Placement of 56-[place] bougie for esophageal dysmotility ANESTHESIA: General with local anesthetic. ESTIMATED BLOOD LOSS: 5 mL SPECIMENS REMOVED: None COMPLICATIONS: None. Condition: stable Disposition: floor FINDINGS: 1. Midline incarcerated paraesophageal hiatal hernia 4 x 6 cm 2. Intraoperative upper endoscopy confirms complete closure of hiatal hernia from Hill grade 3 to Hill grade 1 3. Intraesophageal length over 2 cm Patient Condition at Discharge: Good Plan - Discharge Summary Discharge Rx Participant: No New Discharge Prescriptions: New Simethicone 40 mg/0.6 ml Drops [Mylicon Drops] 80 mg PO Q6HR ml Simethicone 40 mg/0.6 ml Drops [Mylicon Drops] 80 mg PO Q6HR PRN #30 ml PRN Reason: Abdominal Distention Acetaminophen Oral Susp [Tylenol Oral Susp] 500 mg PO Q4-6H PRN #400 ml PRN Reason: Pain Continue Macular Degeneration Vitamin 1 tab PO DIRECTED atenoloL [Tenormin] 100 mg PO 0200 lisinopriL [Zestril] 20 mg PO HS Discontinued Omeprazole [PriLOSEC] 40 mg PO QAM Sucralfate [Carafate] 1 gm PO BID Discharge Medication List Macular Degeneration Vitamin 1 tab PO DIRECTED 01/27/19 [History] atenoloL [Tenormin] 100 mg PO 0200 02/03/19 [History] lisinopriL [Zestril] 20 mg PO HS 02/03/21 [History] Acetaminophen Oral Susp [Tylenol Oral Susp] 500 mg PO Q4-6H PRN #400 ml 03/18/21 [Rx] Simethicone 40 mg/0.6 ml Drops [Mylicon Drops] 80 mg PO Q6HR ml 03/18/21 [Rx] Simethicone 40 mg/0.6 ml Drops [Mylicon Drops] 80 mg PO Q6HR PRN #30 ml 03/18/21 [Rx] Follow up Appointment(s)/Referral(s): Sarah Dominguez MD [STAFF PHYSICIAN] - 03/21/21 (Please call to confirm time) Patient Instructions/Handouts: Laparoscopic Hiatal Hernia Repair (DC) Activity/Diet/Wound Care/Special Instructions: Liquid diet only for 2 weeks until March 31 No lifting over 4 pounds in 4 weeks, April 16April shower No soaking in bath tubs for 2 weeks, March 31 Please notify your surgeon if you develop nausea and vomiting including new onset of abdominal pain. Please ambulate at all times. Use Simethicone, Gas-X, Tylenol and ibuprofen or Aleve scheduled for the next 24-48 hours for best pain relief. Use ice along incisions for the today to prevent swelling. Please open, cut, crush pills larger than the size of a tic tack No carbonated beverages. No straws. Do not remove scopolamine patch for 3 days, if present Discharge Disposition: HOME SELF-CARE
== END 2021-03-18 17:22 | disposition home or self-care (01) ==
LOC: OR 10:24 → 5NMEDONC 14:02 → INTOOBSV 14:19 → OR 14:19 → 5NMEDONC 14:19
PROVIDERS: ADMIT Surgery Plastic and Reconstructive Surgery; ATTEND Surgery Plastic and Reconstructive Surgery
DX: K44.0 Diaphragmatic hernia with obstruction, without gangrene (principal); K22.2 Esophageal obstruction; K21.9 Gastro-esophageal reflux disease without esophagitis; K22.4 Dyskinesia of esophagus; R16.0 Hepatomegaly, not elsewhere classified; R07.89 Other chest pain; I11.9 Hypertensive heart disease without heart failure; D17.79 Benign lipomatous neoplasm of other sites; H35.30 Unspecified macular degeneration; Z79.899 Other long term (current) drug therapy; Z87.11 Personal history of peptic ulcer disease; Z90.49 Acquired absence of other specified parts of digestive tract; Z87.891 Personal history of nicotine dependence; Z80.9 Family history of malignant neoplasm, unspecified
CPT/HCPCS: 43282; 43450; 80051; 80053; 82310; 82565; 83735; 84100; 84520; 85025 ×2; 87635; 74210; G0378; C1781; J2250; J0330; J1100 ×2; J2710; J2765; J0690 ×2; J2405; J2001; J1650; J3010; J0131; J2704; C9113 ×2; J1170; Q9967; J1644

== ENCOUNTER → 2021-04-04 | Outpatient (CLI) | payer MEDICARE ==
[2021-04-04 17:17] LABS: HCT 43.3 % (39.6-50.0); MCH 29.9 pg (27.0-32.0); MCHC 32.3 g/dL (32.0-37.0); MCV 92.3 fL (80.0-97.0); Mean Platelet Volume 11.5 fL (9.5-12.2); Platelet Count 249 X 10*3/uL (140-440); RBC 4.69 X 10*6/uL (4.40-5.60); RDW 12.9 % (11.5-14.5); WBC 8.03 X 10*3/uL (4.50-10.00)
[2021-04-05 01:38] LABS: Anion Gap 9.6 mmol/L (4.00-12.00); BUN/Creat Ratio 21.82 Ratio (12.00-20.00); Calcium 9.5 mg/dL (8.7-10.3); Carbon Dioxide 27.4 mmol/L (21.6-31.8); Non-African American GFR(CKD) 68.1 (60.0-200.0); Potassium 4.7 mmol/L (3.5-5.5)
== END | disposition home or self-care (01) ==
LOC: LABWHC1 09:55
PROVIDERS: ATTEND Surgery Plastic and Reconstructive Surgery
DX: I95.1 Orthostatic hypotension (principal)
CPT/HCPCS: 36415; 80048; 85027

== ENCOUNTER → 2021-04-07 | Outpatient (CLI) | payer MEDICARE ==
[2021-04-07 10:39] LABS: INR 0.9 (<1.2); Partial Thromboplastin Time 22.2 sec (22.0-30.0); Prothrombin Time 10.2 sec (9.0-12.0)
[2021-04-07 16:13] LABS: HCT 43.1 % (39.6-50.0); HGB 13.9 g/dL (13.0-17.0); MCH 30.3 pg (27.0-32.0); MCHC 32.3 g/dL (32.0-37.0); MCV 93.9 fL (80.0-97.0); Mean Platelet Volume 11.5 fL (9.5-12.2); Platelet Count 232 X 10*3/uL (140-440); RBC 4.59 X 10*6/uL (4.40-5.60); WBC 6.29 X 10*3/uL (4.50-10.00)
[2021-04-07 18:17] LABS: Hemoglobin A1C 5.9 % (4.0-6.0)
[2021-04-07 21:27] LABS: % Iron Saturation 33.23 (15.00-50.00); ALT 24 U/L (10-49); AST 23 U/L (14-35); Albumin/Globulin Ratio 2.14 (1.60-3.17); Alkaline Phosphatase 50 U/L (41-126); BUN/Creat Ratio 23.64 Ratio (12.00-20.00); Calcium 9.6 mg/dL (8.7-10.3); Carbon Dioxide 27.2 mmol/L (21.6-31.8); Chloride 102 mmol/L (96-109); Chol/HDL Ratio 4.09; Cholesterol 184 mg/dL (0-200); Globulin 2.1 g/dL (1.6-3.3); Glucose 127 mg/dL (70-110); Iron 108 ug/dL (65-175); LDL Cholesterol,Calculated 105.8 mg/dL (0.0-131.0); Non-African American GFR(CKD) 68.1 (60.0-200.0); Phosphorus 3.5 mg/dL (2.4-5.1); Potassium 4.8 mmol/L (3.5-5.5); Sodium 139 mmol/L (135-145); Total Bilirubin 0.8 mg/dL (0.3-1.2); Total Iron Binding Capacity 325 ug/dL (228-460); Total Protein 6.6 g/dL (6.2-8.2)
[2021-04-07 21:34] LABS: Ferritin 88.1 ng/mL (22.0-322.0)
[2021-04-07 21:43] LABS: Folate, Serum >24.0 ng/mL
[2021-04-10 13:49] LABS: Zinc, Serum 64 ug/dL (60-130)
== END | disposition home or self-care (01) ==
LOC: LABWHC1 09:46
PROVIDERS: ATTEND Surgery Plastic and Reconstructive Surgery
DX: Z01.812 Encounter for preprocedural laboratory examination (principal); E66.01 Morbid (severe) obesity due to excess calories; K74.1 Hepatic sclerosis; K50.90 Crohn's disease, unspecified, without complications; E89.1 Postprocedural hypoinsulinemia; N19 Unspecified kidney failure; E21.1 Secondary hyperparathyroidism, not elsewhere classified; D50.8 Other iron deficiency anemias; K90.89 Other intestinal malabsorption; E55.9 Vitamin D deficiency, unspecified
CPT/HCPCS: 36415; 80053; 80061; 82306; 82525; 82607; 82728; 82746; 83036; 83540; 83550; 83735; 83970; 84100; 84134; 84255; 84425; 84443; 84590; 84630; 85027; 85610; 85730

== ENCOUNTER 2021-08-11 15:01 | Emergency (ER) | payer MEDICARE ==
[2021-08-11 15:28] VITALS: RESP 20
[2021-08-11] MEDS ORDERED: predniSONE 20 MG TAB PO STA (15:43)
[2021-08-11] MEDS ORDERED: FAMOTIDINE 20 MG TAB PO STA (15:43)
[2021-08-11] MEDS ORDERED: diphenhydrAMINE 50 MG CAP PO STA (15:43)
--- NOTE | 2021-08-11 15:46 | ED ---
Allergic Reaction HPI - General Chief complaint: Allergic Reaction Stated complaint: Possible allergic reaction Time Seen by Provider: 08/11/21 15:32 Source: patient Mode of arrival: ambulatory Limitations: no limitations - History of Present Illness Initial Comments: The patient is a 70-year-old male who presents to the emergency department for ALLERGIC reaction. Patient was working in his yard approximately 2 hours ago when he was stung by 60s. He sustained stings to his right forearm, left middle finger and wrist. He had some localized swelling. Denies any shortness of breath or chest pain. States that he began having some epigastric discomfort and nausea and therefore called EMS. He has never had a bad reaction to bee stings before. States he feels completely astigmatic at this time and would like to be discharged as he does have a at home on hospice. Patient has not taken any medications for his symptoms at this time. No other alleviating, precipitating or modifying factors - Related Data Home Medications Medication Instructions Recorded Confirmed Macular Degeneration Vitamin 1 tab PO DIRECTED 01/27/19 03/17/21 atenoloL [Tenormin] 100 mg PO 0200 02/03/19 03/17/21 lisinopriL [Zestril] 20 mg PO HS 02/03/21 03/17/21 Previous Rx's Medication Instructions Recorded Acetaminophen Oral Susp [Tylenol 500 mg PO Q4-6H PRN #400 ml 03/18/21 Oral Susp] Simethicone 40 mg/0.6 ml Drops 80 mg PO Q6HR ml 03/18/21 [Mylicon Drops] Simethicone 40 mg/0.6 ml Drops 80 mg PO Q6HR PRN #30 ml 03/18/21 [Mylicon Drops] EPINEPHrine (Auto Inject) [Epipen] 0.3 mg IM ONCE PRN #2 each 08/11/21 Allergies Allergy/AdvReac Type Severity Reaction Status Date / Time No Known Allergies Allergy Verified 03/17/21 11:06 Review of Systems ROS Statement: Those systems with pertinent positive or pertinent negative responses have been documented in the HPI. ROS Other: All systems not noted in ROS Statement are negative. 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,dory eyes macular degeneration,gastric ulcers History of Any Multi-Drug Resistant Organisms: None Reported Past Surgical History: Cholecystectomy, Tonsillectomy Additional Past Surgical History / Comment(s): left caratacts,EGDs Past Anesthesia/Blood Transfusion Reactions: Previous Problems w/ Anesthesia Additional Past Anesthesia/Blood Transfusion Reaction / Comment(s): has general achiness after anesthesia,no hx blood transfusion Past Psychological History: No Psychological Hx Reported Smoking Status: Former smoker Past Alcohol Use History: None Reported Past Drug Use History: None Reported - Past Family History Mother Family Medical History: Cancer General Exam Limitations: no limitations Course Vital Signs 08/11/21 08/11/21 15:24 16:12 Temperature 98.9 F 98.0 F Pulse Rate 62 64 Respiratory 20 20 Rate Blood Pressure 173/81 170/80 O2 Sat by Pulse 99 98 Oximetry Medical Decision Making - Medical Decision Making Upon arrival patient is placed into hallway 26. No signs of anaphylaxis at this time. Patient is given a dose of prednisone, Axid and Benadryl. EKG is performed which demonstrates sinus rhythm. Patient is eager for discharge at this time. We'll provide him with an EpiPen for which she is instructed to use in the future for any signs of shortness of breath. She needs to follow up with his primary care doctor in 2-4 days. Return for any new or worsening symptoms. Patient was discharged home in stable condition - EKG Data EKG Comments: EKG demonstrates sinus bradycardia with PVCs. Rate is 58. ID interval 156. QRS 94. QTC of 439. No acute ST segment elevations or depressions Disposition Clinical Impression: Sting, bee Disposition: HOME SELF-CARE Condition: Stable Instructions (If sedation given, give patient instructions): Insect Bite or Sting (ED) Additional Instructions: Please follow up with your PCP in 2-4 days. Take Benadryl as needed for itching. Return to the ED for any new or worsening symptoms. Prescriptions: EPINEPHrine (Auto Inject) [Epipen] 0.3 mg IM ONCE PRN #2 each PRN Reason: Anaphylaxis Is patient prescribed a controlled substance at d/c from ED?: No Referrals: Roger Mcmanus DO [Primary Care Provider] - 1-2 days Time of Disposition: 15:46
[2021-08-11 16:14] VITALS: BP 170/80; PULSE 64; TEMP 98
== END 2021-08-11 16:12 | disposition home or self-care (01) ==
LOC: EC 15:01
DX: T63.441A Toxic effect of venom of bees, accidental (unintentional), initial encounter (principal); K21.9 Gastro-esophageal reflux disease without esophagitis; I10 Essential (primary) hypertension; Z90.49 Acquired absence of other specified parts of digestive tract; Z90.89 Acquired absence of other organs; Z87.891 Personal history of nicotine dependence
CPT/HCPCS: 99284; 93005; J7512

== ENCOUNTER → 2022-04-03 | Outpatient (CLI) | payer MEDICARE | END | disposition home or self-care (01) | LOC: LABWHC1 11:38 | PROVIDERS: ATTEND Surgery Plastic and Reconstructive Surgery | DX: K85.90 Acute pancreatitis without necrosis or infection, unspecified (principal) | CPT/HCPCS: 36415; 83690 ==

== ENCOUNTER → 2022-08-24 | Outpatient (CLI) | payer MEDICARE ==
--- NOTE | 2022-08-24 15:50 | CT ---
EXAMINATION TYPE: CT heart w calcium score DATE OF EXAM: 08/24/2022 COMPARISON: HISTORY: Screening for cardiovascular disorder. 213.9 CT DLP: 158.5 mGycm Automated exposure control for dose reduction was used. CT CALCIUM SCORING Coronary calcium is a marker for plaque (fatty deposits) in a blood vessel or atherosclerosis (harden ing of the arteries). The presence and amount of calcium detected in a coronary artery by the CT sca n, indicates the presence and amount of atherosclerotic plaque. These calcium deposits appear years before the development of heart disease symptoms such as chest pain and shortness of breath. A calcium score is computed for each of the coronary arteries based upon the volume and density of th e calcium deposits. This can be referred to as your calcified plaque burden. It does not correspond directly to the percentage of narrowing in the artery but does correlate with the severity of the un derlying coronary atherosclerosis. PROCEDURE TECHNIQUE - Prospective Gating was used. Slice thickness: 3mm. Density threshold (HU): 130, Pixel threshold: 3, Algorithm: discrete. RESULTS Region: LM Calcium Score ([place]): 152.39 Volume (mm3): 114.29 Mass (g): 38.1 Region: RCA Calcium Score ([place]): 0 Volume (mm3): 0 Mass (g): 0 Region: LAD Calcium Score ([place]): 166.19 Volume (mm3): 136.37 Mass (g): 45.46 Region: CX Calcium Score ([place]): 96.62 Volume (mm3): 79.51 Mass (g): 26.5 Region: PDA Calcium Score ([place]): 0 Volume (mm3): 0 Mass (g): 0 Total: Calcium Score ([place]): 415.2 Volume (mm3): 330.17 Mass (g): 110.06 TOTAL CALCIUM SCORE: 415.2 IMPRESSION: Calcium Score: 415.2 Implication: Extensive atherosclerotic plaque Risk of Coronary Artery Disease: High likelihood of at least one significant coronary narrowing. CALCIUM SCORE IMPLICATION RISK OF C ORONARY ARTERY DISEASE 0 No identifiable plaque Very low, generally less than 5% 1-10 Minimal identifiable plaque Very unlikely, less than 10% 11-100 Definite, at least mild atherosclerotic plaque Mild or m inimal coronary narrowings likely 101-400 Definite, at least moderate atherosclerotic plaque Mild coronary ar ramana disease highly likely, significant narrowing possible 401 or Higher Extensive atherosclerotic plaque High lik elihood of at least one significant coronary narrowing
== END | disposition home or self-care (01) ==
LOC: RADCTMAIN 09:22
PROVIDERS: ATTEND Family Medicine
DX: I25.10 Atherosclerotic heart disease of native coronary artery without angina pectoris (principal); I10 Essential (primary) hypertension; E78.2 Mixed hyperlipidemia; R07.89 Other chest pain; M79.622 Pain in left upper arm
CPT/HCPCS: 75571

== ENCOUNTER 2023-03-24 08:50 | Emergency (ER) | payer MEDICARE ==
[2023-03-24 09:07] VITALS: PULSE 50; RESP 16
--- NOTE | 2023-03-24 09:14 | ED ---
Back Pain HPI - General Chief Complaint: Back Pain/Injury Stated Complaint: Fall Time Seen by Provider: 03/24/23 08:52 Source: patient, EMS, RN notes reviewed Mode of arrival: EMS Limitations: no limitations - History of Present Illness Initial Comments: This is a 72-year-old male who presents to the emergency department for a fall. Patient slipped coming down his steps this morning and landed on his lower back. Denies hitting his head or sustaining any loss of consciousness. He is taking Plavix. He was given 50mcg of fentanyl in route by EMS, which he states was beneficial. He notes a large hematoma to his lower back. Denies any other injuries. Denies any fevers, chills, sore throat, cough, dyspnea, chest pain, palpitations, abdominal pain, nausea, vomiting, diarrhea, or headaches. MD Complaint: back pain, back injury, fall Place: home Context: fall - Related Data Home Medications Medication Instructions Recorded Confirmed atenoloL [Tenormin] 50 mg PO BID 02/03/19 01/16/23 Omeprazole [PriLOSEC] 40 mg PO DAILY 03/12/22 01/16/23 Sucralfate [Carafate] 1 gm PO ACHS PRN 03/12/22 01/22/23 ALPRAZolam [Xanax] 0.25 mg PO DAILY PRN 12/27/22 01/22/23 Previous Rx's Medication Instructions Recorded Aspirin 81 mg PO DAILY #90 tab 01/02/23 Atorvastatin [Lipitor] 80 mg PO HS #90 tab 01/02/23 Clopidogrel [Plavix] 75 mg PO DAILY #90 tablet 01/02/23 Nitroglycerin Sl Tabs [Nitrostat] 0.4 mg SUBLINGUAL Q5M PRN #30 tab 01/23/23 HYDROcodone/APAP 5-325MG [[place] 1 tab PO Q6HR PRN 3 Days #12 tab 03/24/23 5-325] Allergies Allergy/AdvReac Type Severity Reaction Status Date / Time No Known Allergies Allergy Verified 03/24/23 09:07 Review of Systems ROS Statement: Those systems with pertinent positive or pertinent negative responses have been documented in the HPI. ROS Other: All systems not noted in ROS Statement are negative. Past Medical History Past Medical History: Chest Pain / Angina, Eye Disorder, GERD/Reflux, Hypertension Additional Past Medical History / Comment(s): Bilateral macular degeneration, gastric ulcers, loose stools recently, upper back pain. 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 Past Anesthesia/Blood Transfusion Reactions: Previous Problems w/ Anesthesia Additional Past Anesthesia/Blood Transfusion Reaction / Comment(s): General achiness after Anesthesia. No hx blood transfusion. Date of Last Stent Placement:: 01/01/23 Past Psychological History: No Psychological Hx Reported Smoking Status: Former smoker Past Alcohol Use History: None Reported Past Drug Use History: None Reported - Past Family History Mother Family Medical History: Cancer General Exam Limitations: no limitations General appearance: alert, in no apparent distress Head exam: Present: atraumatic, normocephalic, normal inspection Eye exam: Present: normal appearance, PERRL, EOMI. Absent: scleral icterus, conjunctival injection, periorbital swelling Respiratory exam: Present: normal lung sounds bilaterally. Absent: respiratory distress, wheezes, rales, rhonchi, stridor Cardiovascular Exam: Present: regular rate, normal rhythm, normal heart sounds. Absent: systolic murmur, diastolic murmur, rubs, gallop, clicks Back exam: Present: other (Large palpable hematoma to the lower lumbar spine. No overlying ecchymosis.) Neurological exam: Present: alert, oriented X3, CN II-XII intact Psychiatric exam: Present: normal affect, normal mood Skin exam: Present: warm, dry, intact, normal color. Absent: rash Course Vital Signs 03/24/23 03/24/23 09:02 10:42 Temperature 98.1 F 97.6 F Pulse Rate 50 L 50 L Respiratory 16 16 Rate Blood Pressure 181/76 161/75 O2 Sat by Pulse 99 98 Oximetry Medical Decision Making - Medical Decision Making This is a 72-year-old male who presents to the emergency department for lower back pain after a fall Was pt. sent in by a medical professional or institution? @ -No Did you speak to anyone other than the patient for history? @ -EMS Did you review nursing and triage notes? @ -Yes, and I agree, it is accurate with regards to the patient's symptoms. Were old charts reviewed? @ -No Differential Diagnosis? @ -Differential Back Pain: Strain, zoster, cauda equina syndrome, epidural abscess, vertebral osteomyelitis, discitis, fracture, subluxation, disc herniation, DJD, spinal stenosis, dissection, AAA, pancreatitis, peptic ulcer disease, pyelonephritis, kidney stone, this is not meant to be an all-inclusive list. CT interpreted by me (1pt min.)? @ -Computed tomography scan of the lumbar spine obtained. My interpretation identifies a hematoma to the lower back. What testing was considered but not performed? (CT, X-rays, U/S, labs)? Why? @ -None What meds were considered but not given? Why? @ -None Did you discuss the management of the patient with other professionals? @ -No Did you reconcile home meds? @ -No Was smoking cessation discussed for >3mins.? @ -No Was critical care preformed (if so, how long)? @ -No Were there social determinants of health that impacted care today? How? (Homelessness, low income, unemployed, alcoholism, drug addiction, transportation, low edu. Level, literacy, decrease access to med. care, long term, rehab)? @ -No Was there de-escalation of care discussed even if they declined? (Discuss DNR or withdrawal of care, Hospice)? @ -No What co-morbidities impacted this encounter? (DM, HTN, Smoking, COPD, CAD, Cancer, CVA, Hep., AIDS, mental health diagnosis, sleep apnea, morbid obesity)? @ -None Was patient admitted / discharged? @ -Discharged. Computed tomography scan of the lumbar spine obtained. Findings reveal a large subcutaneous hematoma over the lumbar spine. There are also bony fragments at the tip of the spinous processes, which are believed to be chronic in nature. This was discussed with the patient. He is unaware of any prior lumbar fractures, however he states that he has fallen on his back several times and not been evaluated. The radiologist notes that the posterior spinal processes are difficult to evaluate and fractures cannot be ruled out. He was able to move around and ambulate without much difficulty, and felt stable for discharge home. Rx for 3 day course of [place]ora provided. He is advised to take this sparingly when his pain is the most severe and I did advise him that this will be sedating. Also instructed him to apply ice for 15-20 minutes every 2-3 hours. Information for orthopedic follow-up provided. Advised he contact them for a follow-up appointment regarding the lumbar fractures. Undiagnosed new problem with uncertain prognosis? @ -None Drug Therapy requiring intensive monitoring for toxicity (Heparin, Nitro, Insulin, Cardizem)? @ -None Were any procedures done? @ -None Diagnosis/symptom? @ -Fall, low back pain Acute, or Chronic, or Acute on Chronic? @ -Acute Uncomplicated (without systemic symptoms) or Complicated (systemic symptoms)? @ -Uncomplicated Side effects of treatment? @ -None Exacerbation, Progression, or Severe Exacerbation] @ -Not applicable Poses a threat to life or bodily function? @ -Will limit his ability to move around due to the pain for a period of time. Return precautions reviewed in depth, the patient is instructed to return to the emergency department with any new, worsening, or concerning symptoms. Patient verbalized understanding. This case was discussed in detail with the attending ED physician, Dr. Stephenson. Presentation, findings, and treatment plan discussed in detail as well. - Radiology Data Radiology results: report reviewed, image reviewed Disposition Clinical Impression: Fall, Lower back pain Disposition: HOME SELF-CARE Instructions (If sedation given, give patient instructions): Acute Low Back Pain (ED) Additional Instructions: Return to the emergency department with any new, worsening, or concerning symptoms. Apply ice for 15-20 minutes every 2-3 hours. Take the Dannemora sparingly when your pain is the most severe. Be aware that this may be s edating, especially if taken with your Xanax. You should avoid driving or operating machinery when taking this. Contact orthopedics as below for a follow-up appointment. Let them know that you fell, and the imaging may have identified multiple old fractures, and they also cannot rule out any new fractures. Follow up with your primary care provider in 1-2 days. Prescriptions: HYDROcodone/APAP 5-325MG [[place] 5-325] 1 tab PO Q6HR PRN 3 Days #12 tab PRN Reason: Pain Is patient prescribed a controlled substance at d/c from ED?: Yes When asked, does pt state using other controlled substances?: Yes If prescribed controlled substance>3 days was MAPS reviewed?: Prescribed <3 Days Referrals: Roger Mcmanus DO [Primary Care Provider] - 1-2 days Peggy Quintana DO [Doctor of Osteopathic Medicine] - 1-2 days
[2023-03-24] MEDS ORDERED: MORPHINE SULFATE 2 MG/ML SYRINGE IVP STA (09:22)
[2023-03-24] MEDS ORDERED: ALPRAZolam 0.5 MG TAB PO STA (09:22)
--- NOTE | 2023-03-24 09:54 | CT ---
EXAMINATION TYPE: CT lumbar spine wo con DATE OF EXAM: 03/24/2023 9:35 AM COMPARISON: None HISTORY: fall CT DLP: 23250 mGycm Automated exposure control for dose reduction was used. Unenhanced CT of the lumbar spine was performed. Bone and soft tissue window settings are submitted as well as coronal and sagittal reconstructions. Posterior subcutaneous hematoma noted measuring 7.0 x 4.0 x 7.7 cm. There is surrounding subcutaneous increased attenuation compatible with posttraumatic change. L1-L2: Normal disc space height. No disc herniation protrusion or central stenosis. No facet joint arthropathy. No evidence for foraminal encroachment. L2-L3: Normal disc space height. No disc herniation protrusion or central stenosis. No facet joint arthropathy. No evidence for foraminal encroachment. L3-L4: Normal disc space height. No disc herniation protrusion or central stenosis. No facet joint arthropathy. No evidence for foraminal encroachment. L4-L5: Mild degenerative narrowing noted. Posterior disc bulge with partially encapsulating spur. Mil d effacement ventral thecal sac. Left lateral recess stenosis without significant foraminal encroachm ent. No central stenosis present. L5-S1: Moderate degenerative narrowing with posterior disc bulge and encapsulating spur resulting in disc endplate complex. Effacement ventral thecal sac resulting in bilateral left greater than right l ateral recess stenosis. Bilateral neural foraminal encroachment left greater than right. There is bony fragmentation noted to involve the tips of the spinous processes of L3, L4 and L5 which are well-corticated and likely chronic in nature. Posterior spinous process fractures are difficult to exclude. See labeled images. No additional fracture seen. Normal alignment. IMPRESSION: 1. Posttraumatic soft tissue changes lower back with subcutaneous hematoma noted as discussed above. 2. Bony fragmentation noted to involve the tips of the spinous processes of L3, L4 and L5 which are w ell-corticated and likely chronic in nature. Posterior spinous process fractures are difficult to exc lude.
[2023-03-24 10:43] VITALS: BP 161/75; TEMP 97.6
== END 2023-03-24 10:44 | disposition home or self-care (01) ==
LOC: EC 08:50
DX: M48.061 Spinal stenosis, lumbar region without neurogenic claudication (principal); M54.50 Low back pain, unspecified; K21.9 Gastro-esophageal reflux disease without esophagitis; I10 Essential (primary) hypertension; Z87.891 Personal history of nicotine dependence; Z79.899 Other long term (current) drug therapy; W01.0XXA Fall on same level from slipping, tripping and stumbling without subsequent striking against object, initial encounter; Y92.009 Unspecified place in unspecified non-institutional (private) residence as the place of occurrence of the external cause
CPT/HCPCS: 72131; 99284; 96374; J2270

== ENCOUNTER 2023-11-19 00:27 | Observation (INO) | payer MEDICARE ==
[2023-11-19] MEDS ORDERED: ASPIRIN 81 MG PO STA (00:49)
[2023-11-19 01:28] LABS: Basophils % (A) 0 %; Eosinophils # (A) 0.2 k/uL (0-0.7); Eosinophils % (A) 3 %; HCT 46.2 % (39.0-53.0); HGB 15.7 gm/dL (13.0-17.5); Lymphocytes # (A) 3.1 k/uL (1.0-4.8); Lymphocytes % (A) 35 %; MCH 31.1 pg (25.0-35.0); MCHC 34.1 g/dL (31.0-37.0); MCV 91.4 fL (80.0-100.0); Mean Platelet Volume 8.3; Monocytes # (A) 0.7 k/uL (0-1.0); Monocytes % (A) 8 %; Neutrophils # (A) 4.5 k/uL (1.3-7.7); Neutrophils % (A) 51 %; Platelet Count 180 k/uL (150-450); RBC 5.06 m/uL (4.30-5.90); RDW 12.3 % (11.5-15.5); WBC 8.9 k/uL (3.8-10.6)
--- NOTE | 2023-11-19 01:37 | ED ---
General Adult HPI - General Chief complaint: Chest Pain Stated complaint: Chest pain Time Seen by Provider: 11/19/23 00:31 Source: patient, RN notes reviewed, old records reviewed Mode of arrival: wheelchair Limitations: no limitations - History of Present Illness Initial comments: Patient is a 73-year-old male who presents emergency Department with atypical chest pain. Patient states that he has been having left arm pains for the last 1-2 days. Seems to be more musculoskeletal related as he states when he presses on his left bicep the pain is bad, seems to make it worse. The last one to 2 hours has been having some left chest discomfort. Unknown if it is related to the left arm pain. States current pain level is 0 out of 10. It is not causing any issues. Patient does have a significant cardiac history including multiple cardiac stents, hypertension. Presented hypertensive. His no other acute complaints at this time, nausea or vomiting. Denies any shortness of breath. Presents for further evaluation. - Related Data Home Medications Medication Instructions Recorded Confirmed atenoloL [Tenormin] 50 mg PO BID 02/03/19 01/16/23 Omeprazole [PriLOSEC] 40 mg PO DAILY 03/12/22 01/16/23 Sucralfate [Carafate] 1 gm PO ACHS PRN 03/12/22 01/22/23 ALPRAZolam [Xanax] 0.25 mg PO DAILY PRN 12/27/22 01/22/23 Previous Rx's Medication Instructions Recorded Aspirin 81 mg PO DAILY #90 tab 01/02/23 Atorvastatin [Lipitor] 80 mg PO HS #90 tab 01/02/23 Clopidogrel [Plavix] 75 mg PO DAILY #90 tablet 01/02/23 Nitroglycerin Sl Tabs [Nitrostat] 0.4 mg SUBLINGUAL Q5M PRN #30 tab 01/23/23 HYDROcodone/APAP 5-325MG [[place] 1 tab PO Q6HR PRN 3 Days #12 tab 03/24/23 5-325] Allergies Allergy/AdvReac Type Severity Reaction Status Date / Time No Known Allergies Allergy Verified 11/19/23 00:30 Review of Systems ROS Statement: Those systems with pertinent positive or pertinent negative responses have been documented in the HPI. Review of Systems: CONST: Denies fever EYES: Denies blurry vision ENT: Denies nasal congestion C/V: Denies Chest pain RESP: Denies shortness of breath GI: Denies abdominal pain : Denies dysuria SKIN: Denies rash. MSK: Denies joint pain. NEURO: Denies headache ROS Other: All systems not noted in ROS Statement are negative. Past Medical History Past Medical History: Chest Pain / Angina, Eye Disorder, GERD/Reflux, Hypertension Additional Past Medical History / Comment(s): Bilateral macular degeneration, gastric ulcers, loose stools recently, upper back pain. 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 Past Anesthesia/Blood Transfusion Reactions: Previous Problems w/ Anesthesia Additional Past Anesthesia/Blood Transfusion Reaction / Comment(s): General achiness after Anesthesia. No hx blood transfusion. Date of Last Stent Placement:: 01/01/23 Past Psychological History: No Psychological Hx Reported Smoking Status: Former smoker Past Alcohol Use History: None Reported Past Drug Use History: None Reported - Past Family History Mother Family Medical History: Cancer General Exam - General Exam Comments Initial Comments: General: Appears in no acute distress. HEAD: Normal with no signs of head trauma. EYES: PERRLA, EOMI, conjunctiva normal, no discharge. ENT: Hearing grossly intact, normal oropharynx. RESPIRATORY: Clear breath sounds bilaterally. No wheezes, rales, or rhonchi. C/V: Regular rate and rhythm. S1 and S2 auscultated, no edema, peripheral pulses 2+ and intact throughout ABD: Abd is soft, nontender, nondistended EXT: Normal range of motion, no obvious deformity SKIN: No rashes or lesions observed on exposed skin. NEURO: Alert and oriented 4. Limitations: no limitations Course Vital Signs 11/19/23 11/19/23 11/19/23 00:27 00:40 01:05 Temperature 97.7 F Pulse Rate 52 L 48 L 51 L Respiratory 18 18 18 Rate Blood Pressure 217/67 193/85 182/81 O2 Sat by Pulse 99 Oximetry 11/19/23 02:21 Temperature Pulse Rate 50 L Respiratory 18 Rate Blood Pressure 176/80 O2 Sat by Pulse 97 Oximetry Medical Decision Making - Medical Decision Making Was pt. sent in by a medical professional or institution (JACK Johnson, INSPECT[employer], urgent care, hospital, or jail...) When possible be specific @ -No Did you speak to anyone other than the patient for history (EMS, parent, family, police, friend...)? What history was obtained from this source @ -No Did you review nursing and triage notes (agree or disagree)? Why? @ -I reviewed and agree with nursing and triage notes Were old charts reviewed (outside hosp., previous admission, EMS record, old EKG, old radiological studies, urgent care reports/EKG's, jail records)? Report findings @ -Old charts reviewed Differential Diagnosis (chest pain, altered mental status, abdominal pain women, abdominal pain men, vaginal bleeding, weakness, fever, dyspnea, syncope, headache, dizziness, GI bleed, back pain, seizure, CVA, palpatations, mental health, musculoskeletal)? @ -Differential Chest Pain: Stable Angina, Unstable Angina, STEMI, NSTEMI Aortic Dissection, Pneumothorax, Musculoskeletal, Esophageal Spasm GERD, Cholecystitis, Pancreatitis, Zoster, this is not meant to be an all-inclusive list. EKG interpreted by me (3pts min.). @ -As above X-rays interpreted by me (1pt min.). @ -Chest x-ray reveals no obvious acute cardio pulmonary process. CT interpreted by me (1pt min.). @ -None done U/S interpreted by me (1pt. min.). @ -None done What testing was considered but not performed or refused? (CT, X-rays, U/S, labs)? Why? @ -None What meds were considered but not given or refused? Why? @ -Considered nitroglycerin however patient is pain-free at this time. Did you discuss the management of the patient with other professionals (professionals i.e. JACK Johnson, [employer], lab, RT, psych nurse, director social welfare, binman, teacher, school resource officer, case folder)? Give summary @ -I spoke with the admitting physician, Dr. Russo who accepted the patient. Was smoking cessation discussed for >3mins.? @ -No Was critical care preformed (if so, how long)? @ -No Were there social determinants of health that impacted care today? How? (Homelessness, low income, unemployed, alcoholism, drug addiction, transportation, low edu. Level, literacy, decrease access to med. care, residential, rehab)? @ -No Was there de-escalation of care discussed even if they declined (Discuss DNR or withdrawal of care, Hospice)? DNR status @ -No What co-morbidities impacted this encounter? (DM, HTN, Smoking, COPD, CAD, Cancer, CVA, ARF, Chemo, Hep., AIDS, mental health diagnosis, sleep apnea, morbid obesity)? @ -None Was patient admitted / discharged? Hospital course, mention meds given and route, prescriptions, significant lab abnormalities, going to OR and other pertinent info. @ -Based on the patient's presentation and physical exam, presents with some chest discomfort associated with some left arm discomfort. Left arm pain started before the chest pain. Appear to be musculoskeletal. Patient currently is asymptomatic. Does have significant cardiac history. We will obtain cardiopulmonary labs. Patient agreement with this plan. He took 2 baby aspirin prior to arrival and he will receive an additional 2 baby aspirin. Patient was hypertensive upon arrival however the pressure is trending downward continue to monitor. Patient agreement with this plan. EKG showed no signs of acute ischemia.Patient's labs returned remarkable for elevated creatinine of 1.31. Troponin undetectable. Remainder of the labs within acceptable limits. On reevaluation, patient's blood pressure is improved. He is feeling still asymptomatic. Patient's heart score is moderate at 4-5 and I did recommend admission for returning to troponins and cardiology evaluation when she was in agreement with. I spoke with the admitting physician, Dr. Russo who accepted the patient. Undiagnosed new problem with uncertain prognosis? @ -No Drug Therapy requiring intensive monitoring for toxicity (Heparin, Nitro, Insulin, Cardizem)? @ -No Were any procedures done? @ -No Diagnosis/symptom? @ -Chest pain Acute, or Chronic, or Acute on Chronic? @ -Acute Uncomplicated (without systemic symptoms) or Complicated (systemic symptoms)? @ -Complicated Side effects of treatment? @ -none Exacerbation, Progression, or Severe Exacerbation] @ -no Poses a threat to life or bodily function? @ -Possibly, yes Diagnosis/symptom? @ -Hypertension Acute, or Chronic, or Acute on Chronic? @ -Chronic Uncomplicated (without systemic symptoms) or Complicated (systemic symptoms)? @ -Uncomplicated Side effects of treatment? @ -none Exacerbation, Progression, or Severe Exacerbation] @ -no Poses a threat to life or bodily function? @ -no - Lab Data Result diagrams: 11/19/23 00:54 11/19/23 00:54 Lab Results 11/19/23 11/19/23 11/19/23 Range/Units 00:54 00:54 00:54 WBC 8.9 (3.8-10.6) k/uL RBC 5.06 (4.30-5.90) m/uL Hgb 15.7 (13.0-17.5) gm/dL Hct 46.2 (39.0-53.0) % MCV 91.4 (80.0-100.0) fL MCH 31.1 (25.0-35.0) pg MCHC 34.1 (31.0-37.0) g/dL RDW 12.3 (11.5-15.5) % Plt Count 180 (150-450) k/uL MPV 8.3 Neutrophils % 51 % Lymphocytes % 35 % Monocytes % 8 % Eosinophils % 3 % Basophils % 0 % Neutrophils # 4.5 (1.3-7.7) k/uL Lymphocytes # 3.1 (1.0-4.8) k/uL Monocytes # 0.7 (0-1.0) k/uL Eosinophils # 0.2 (0-0.7) k/uL Basophils # 0.0 (0-0.2) k/uL PT 11.4 (10.0-12.5) sec INR 1.1 (<1.2) APTT 23.0 (22.0-30.0) sec Sodium 132 L (137-145) mmol/L Potassium 4.0 (3.5-5.1) mmol/L Chloride 94 L (98-107) mmol/L Carbon Dioxide 25 (22-30) mmol/L Anion Gap 13 mmol/L BUN 23 H (9-20) mg/dL Creatinine 1.31 H (0.66-1.25) mg/dL Est GFR (CKD-EPI)AfAm 63 (>60 ml/min/1.73 sqM) Est GFR (CKD-EPI)NonAf 54 (>60 ml/min/1.73 sqM) Glucose 108 H (74-99) mg/dL Calcium 9.3 (8.4-10.2) mg/dL Magnesium 2.1 (1.6-2.3) mg/dL Total Bilirubin 0.8 (0.2-1.3) mg/dL AST 31 (17-59) U/L ALT 28 (4-49) U/L Alkaline Phosphatase 61 (38-126) U/L Troponin I (0.000-0.034) ng/mL Total Protein 7.1 (6.3-8.2) g/dL Albumin 4.3 (3.5-5.0) g/dL 11/19/23 Range/Units 00:54 WBC (3.8-10.6) k/uL RBC (4.30-5.90) m/uL Hgb (13.0-17.5) gm/dL Hct (39.0-53.0) % MCV (80.0-100.0) fL MCH (25.0-35.0) pg MCHC (31.0-37.0) g/dL RDW (11.5-15.5) % Plt Count (150-450) k/uL MPV Neutrophils % % Lymphocytes % % Monocytes % % Eosinophils % % Basophils % % Neutrophils # (1.3-7.7) k/uL Lymphocytes # (1.0-4.8) k/uL Monocytes # (0-1.0) k/uL Eosinophils # (0-0.7) k/uL Basophils # (0-0.2) k/uL PT (10.0-12.5) sec INR (<1.2) APTT (22.0-30.0) sec Sodium (137-145) mmol/L Potassium (3.5-5.1) mmol/L Chloride (98-107) mmol/L Carbon Dioxide (22-30) mmol/L Anion Gap mmol/L BUN (9-20) mg/dL Creatinine (0.66-1.25) mg/dL Est GFR (CKD-EPI)AfAm (>60 ml/min/1.73 sqM) Est GFR (CKD-EPI)NonAf (>60 ml/min/1.73 sqM) Glucose (74-99) mg/dL Calcium (8.4-10.2) mg/dL Magnesium (1.6-2.3) mg/dL Total Bilirubin (0.2-1.3) mg/dL AST (17-59) U/L ALT (4-49) U/L Alkaline Phosphatase (38-126) U/L Troponin I <0.012 (0.000-0.034) ng/mL Total Protein (6.3-8.2) g/dL Albumin (3.5-5.0) g/dL - EKG Data -: EKG Interpreted by Me EKG Comments: 12-lead Electrocardiogram Interpretation Note EKG was reviewed and interpreted by myself. 12-lead ECG performed at 0037 is interpreted by me as revealing sinus bradycardia at a rate of 49 beats per min [place]. Left axis deviation. [place] interval is 200 ms, QRS duration is 111 ms, QTc is 418 ms.. There were no ST or T wave abnormalities to suggest myocardial ischemia or injury. R wave progression across the precordium was satisfactory. By my interpretation this EKG is non-diagnostic for acute ischemia. Disposition Clinical Impression: Chest pain, Hypertension Disposition: ADMITTED IP TO THIS HOSP Condition: Stable Time of Disposition: 02:00
[2023-11-19 01:48] LABS: ALT 28 U/L (4-49); AST 31 U/L (17-59); African American GFR (CKD) 63 (>60 ml/min/1.73 sqM); Albumin 4.3 g/dL (3.5-5.0); Alkaline Phosphatase 61 U/L (38-126); Anion Gap 13 mmol/L; Blood Urea Nitrogen 23 mg/dL (9-20); Calcium 9.3 mg/dL (8.4-10.2); Carbon Dioxide 25 mmol/L (22-30); Chloride 94 mmol/L (98-107); Glucose 108 mg/dL (74-99); Magnesium 2.1 mg/dL (1.6-2.3); Non-African American GFR(CKD) 54 (>60 ml/min/1.73 sqM); Sodium 132 mmol/L (137-145); Total Bilirubin 0.8 mg/dL (0.2-1.3); Total Protein 7.1 g/dL (6.3-8.2)
[2023-11-19 01:54] LABS: INR 1.1 (<1.2); Prothrombin Time 11.4 sec (10.0-12.5)
[2023-11-19] MEDS ORDERED: NALOXONE 0.4 MG/ML 1 ML VIAL IV PRN (02:30)
--- NOTE | 2023-11-19 03:21 | XR ---
EXAM: XR Chest, 2 Views CLINICAL HISTORY: ITS.REASON XR Reason: Chest Pain TECHNIQUE: Frontal and lateral views of the chest. COMPARISON: No relevant prior studies available. FINDINGS: Lungs: Unremarkable. No consolidation. Pleural space: Unremarkable. No pneumothorax. Heart: Mild cardiomegaly. Mediastinum: Unremarkable. Normal mediastinal contour. Bones/joints: Unremarkable. No acute fracture. Upper abdomen: Cholecystectomy clips. IMPRESSION: No acute findings in the chest.
[2023-11-19] MEDS ORDERED: ATORVASTATIN 80 MG TAB PO STA (04:12)
--- NOTE | 2023-11-19 04:13 | P.HPIM ---
History of Present Illness H&P Date: 11/19/23 Patient is a 73-year-old male with a PMH of CAD status post multiple stents who presents to the emergency room with complaints of left-sided chest and arm pain. Patient notes his pain started suddenly at around 11 PM while he was at home resting comfortably. Pain was left-sided, 2 out of 10 on maximal intensity, somewhat radiating into the left arm, nonpleuritic, without any associated symptoms. Due to his history of multiple stents, he decided to come in for evaluation. Denies lower extremity swelling or pain. Notes the pain resolved within an hour and has not recurred. Denied experiencing fever, chills, cough, nausea, vomiting, diaphoresis, or dizziness. Chest x-ray in the emergency room was unremarkable with EKG showing sinus bradycardia at 49 bpm with poor R-wave progression as reviewed by me. Laboratory evaluation revealed a troponin of less than 0.012, BUN 23, creatinine 1.31 (baseline 1.0), sodium 132, and chloride 94. ED documentation reviewed and case discussed with ED provider. Review of systems: Pertinent positives and negatives as discussed in HPI, a complete review of systems was performed and all other systems are negative. Physical examination: Vital signs reviewed General: non toxic, no distress, appears at stated age, normal weight Derm: no unusual rashes/lesions, warm Head: atraumatic, normocephalic, symmetric Eyes: EOMI, no lid lag, anicteric sclera, pupils equal round reactive to light ENT: Nose and ears atraumatic Neck: No cervical lymphadenopathy, trachea midline, supple Mouth: no lip lesion, mucus membranes moist Cardiovascular: S1S2 reg, no murmur, positive dorsalis pedis pulse bilateral, no edema Lungs: CTA bilateral, no rhonchi, no rales, no accessory muscle use Abdominal: soft, nontender to palpation, no guarding Ext: muscle strength 5 out of 5 in all 4 extremities grossly, no gross muscle atrophy, no contractures, Neuro: CN II-XI grossly intact, no gross focal neuro deficits Psych: Alert, oriented, appropriate affect Assessment: Chest pain, rule out ACS DIANE Hypochloremic hyponatremia Imaging: Chest x-ray in the emergency room was unremarkable with EKG showing sinus bradycardia at 49 bpm with poor R-wave progression as reviewed by me. Data Review: Laboratory evaluation revealed a troponin of less than 0.012, BUN 23, creatinine 1.31 (baseline 1.0), sodium 132, and chloride 94. Plan: Cardiac monitoring Trend troponin Cardiology consulted Echocardiogram Continue with aspirin and statin Gentle IV fluids Monitor BMP DVT prophylaxis: Lovenox Subq The patient is admitted with an anticipated less than 2 midnight stay for evaluation of chest pain CODE STATUS: Full Code Discussed with: Patient Anticipated discharge place: Home Past Medical History Past Medical History: Chest Pain / Angina, Eye Disorder, GERD/Reflux, Hypertension Additional Past Medical History / Comment(s): Bilateral macular degeneration, gastric ulcers, loose stools recently, upper back pain. 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 Past Anesthesia/Blood Transfusion Reactions: Previous Problems w/ Anesthesia Additional Past Anesthesia/Blood Transfusion Reaction / Comment(s): General achiness after Anesthesia. No hx blood transfusion. Date of Last Stent Placement:: 01/01/23 Past Psychological History: No Psychological Hx Reported Smoking Status: Former smoker Past Alcohol Use History: None Reported Past Drug Use History: None Reported - Past Family History Mother Family Medical History: Cancer Medications and Allergies Home Medications Medication Instructions Recorded Confirmed Type atenoloL [Tenormin] 50 mg PO BID 02/03/19 01/16/23 History Omeprazole [PriLOSEC] 40 mg PO DAILY 03/12/22 01/16/23 History Sucralfate [Carafate] 1 gm PO ACHS PRN 03/12/22 01/22/23 History ALPRAZolam [Xanax] 0.25 mg PO DAILY PRN 12/27/22 01/22/23 History Aspirin 81 mg PO DAILY #90 tab 01/02/23 01/22/23 Rx Atorvastatin [Lipitor] 80 mg PO HS #90 tab 01/02/23 01/16/23 Rx Clopidogrel [Plavix] 75 mg PO DAILY #90 tablet 01/02/23 01/16/23 Rx Nitroglycerin Sl Tabs [Nitrostat] 0.4 mg SUBLINGUAL Q5M PRN #30 tab 01/23/23 Rx HYDROcodone/APAP 5-325MG [[place] 1 tab PO Q6HR PRN 3 Days #12 tab 03/24/23 Rx 5-325] Allergies Allergy/AdvReac Type Severity Reaction Status Date / Time No Known Allergies Allergy Verified 11/19/23 00:30 Physical Exam Vitals: Vital Signs Temp Pulse Resp BP Pulse Ox 11/19/23 03:38 54 L 18 159/76 97 11/19/23 02:21 50 L 18 176/80 97 11/19/23 01:05 51 L 18 182/81 11/19/23 00:40 48 L 18 193/85 11/19/23 00:27 97.7 F 52 L 18 217/67 99 Intake and Output 11/18/23 11/18/23 11/19/23 14:59 22:59 06:59 Other: Weight 108.862 kg Results CBC & Chem 7: 11/19/23 00:54 11/19/23 00:54 Labs: Abnormal Lab Results - Last 24 Hours (Table) 11/19/23 Range/Units 00:54 Sodium 132 L (137-145) mmol/L Chloride 94 L (98-107) mmol/L BUN 23 H (9-20) mg/dL Creatinine 1.31 H (0.66-1.25) mg/dL Glucose 108 H (74-99) mg/dL
[2023-11-19] MEDS ORDERED: SODIUM CHLORIDE 0.9% 1,000 ML IV SCH (04:15)
[2023-11-19] MEDS ORDERED: CLOPIDOGREL 75 MG TAB PO SCH (09:00)
[2023-11-19] MEDS ORDERED: amLODIPine 5 MG TAB PO SCH (09:00)
[2023-11-19] MEDS ORDERED: ENOXAPARIN 40 MG/0.4 ML SYRINGE SQ SCH (09:00)
[2023-11-19] MEDS ORDERED: ASPIRIN 81 MG PO SCH (09:00)
--- NOTE | 2023-11-19 11:01 | P.CRDCN ---
History of Present Illness History of present illness: HISTORY OF PRESENT ILLNESS: This is a 73-year-old male with a past medical history significant for coronary artery disease with previous stenting, hyperlipidemia, and GERD. Patient follows in the office with Dr. Pettit. We have been asked to see the patient in [facility] for chest pain. Patient examined at the bedside. Patient states over the past couple days he has been noticing discomfort in his left arm. He states it is just in the upper portion of his arm. He denies having any significant chest pain or pressure. He denies any shortness of breath. He does state that sometimes certain movements of his left arm will exacerbate the pain. He states his pain is not similar to his stenting at the beginning of the year and states at that time he had significant back pain. It is noted that the patient's blood pressure was significantly elevated upon admission to the hospital with a reading of 217/67. * EKG reveals sinus mechanism with no signs of acute ischemia. * Chest xray negative for acute findings * Laboratory data: BUN 23. Creatinine 1.31. Magnesium 2.1. Troponin negative 3 * Current home cardiac medications include Lipitor 40 mg at night, atenolol 50 mg twice a day, Plavix 75 mg daily, chlorthalidone 25 mg daily * Cardiac catheterization history: Patient underwent cardiac catheterization in December 2022 with stenting of the LAD, diagonal branch, and circumflex. He then underwent staged PCI in January 2023 with stenting of the proximal OM1 as well as the distal apical LAD. REVIEW OF SYSTEMS: At the time of my exam: CONSTITUTIONAL: Denies fever or chills. HEENT: Denies blurred vision, vision changes, or eye pain. Denies hemoptysis CARDIOVASCULAR: Denies chest pain. Denies orthopnea. Denies PND. Denies palpitations RESPIRATORY: Denies shortness of breath. GASTROINTESTINAL: Denies abdominal pain. Denies nausea or vomiting. HEMATOLOGIC: Denies bleeding disorders. GENITOURINARY: Denies any blood in urine. SKIN: Denies pruitis. Denies rash. PHYSICAL EXAM: VITAL SIGNS: Reviewed. GENERAL: Well-developed in no acute distress. HEENT: Head is normocephalic. Pupils are equal, round. Sclerae anicteric. Mucous membranes of the mouth are moist. Neck supple. No JVD or thyromegaly LUNGS: Respirations even and unlabored. Lungs essentially clear to auscultation bilaterally. HEART: Regular rate and rhythm. S1 and S2 heard. ABDOMEN: Soft. Nondistended. Nontender. EXTREMITIES: Normal range of motion. No clubbing or cyanosis. Peripheral pulses intact. No lower extremity edema NEUROLOGIC: Awake and alert. Oriented x 3. ASSESSMENT: Left arm discomfort, rule out anginal equivalent Coronary artery disease with previous stenting, most recently January 2023 Hypertension, uncontrolled on admission Acute kidney injury Hyperlipidemia GERD PLAN: An acute coronary event has been ruled out Resume home cardiac medications Add Amlodipine 5 mg daily for optimal blood pressure control Hold chlorthalidone secondary to DIANE Obtain 2-D echo to assess cardiac structure and function Patient to undergo Cardiolite stress test today to assess for ischemia Further recommendations pending patient's course Nurse practitioner note has been reviewed by physician. Signing provider agrees with the documented findings, assessment, and plan of care. Past Medical History Past Medical History: Chest Pain / Angina, Eye Disorder, GERD/Reflux, Hypertension Additional Past Medical History / Comment(s): Bilateral macular degeneration, gastric ulcers, loose stools recently, upper back pain. 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 Date of Last Stent Placement:: 01/01/23 Past Psychological History: No Psychological Hx Reported Smoking Status: Former smoker Past Alcohol Use History: None Reported Additional Past Alcohol Use History / Comment(s): Smoked from age [age], quit 50 yrs ago. Past Drug Use History: None Reported - Past Family History Mother Family Medical History: Cancer Medications and Allergies Home Medications Medication Instructions Recorded Confirmed Type atenoloL [Tenormin] 50 mg PO BID 02/03/19 11/19/23 History Omeprazole [PriLOSEC] 40 mg PO DAILY 03/12/22 11/19/23 History Sucralfate [Carafate] 1 gm PO ACHS PRN 03/12/22 11/19/23 History ALPRAZolam [Xanax] 0.25 mg PO BID PRN 12/27/22 11/19/23 History Clopidogrel [Plavix] 75 mg PO DAILY #90 tablet 01/02/23 11/19/23 Rx Nitroglycerin Sl Tabs [Nitrostat] 0.4 mg SUBLINGUAL Q5M PRN #30 tab 01/23/23 11/19/23 Rx Atorvastatin [Lipitor] 40 mg PO HS 11/19/23 11/19/23 History Chlorthalidone 25 mg PO DAILY 11/19/23 11/19/23 History Meloxicam [Mobic] 15 mg PO DAILY 11/19/23 11/19/23 History cefUROXime axetiL [Ceftin] 500 mg PO DIRECTED 11/19/23 11/19/23 History Allergies Allergy/AdvReac Type Severity Reaction Status Date / Time No Known Allergies Allergy Verified 11/19/23 07:17 Physical Exam Vitals: Vital Signs Temp Pulse Pulse Resp BP BP Pulse Ox 11/19/23 09:14 97.3 F L 51 L 22 191/83 98 11/19/23 08:29 98.7 F 47 L 18 160/84 98 11/19/23 06:38 50 L 18 160/74 97 11/19/23 06:05 57 L 16 151/78 98 11/19/23 05:06 43 L 16 163/71 99 11/19/23 03:38 54 L 18 159/76 97 11/19/23 02:21 50 L 18 176/80 97 11/19/23 01:05 51 L 18 182/81 11/19/23 00:40 48 L 18 193/85 11/19/23 00:27 97.7 F 52 L 18 217/67 99 Intake and Output 11/18/23 11/19/23 11/19/23 22:59 06:59 14:59 Other: Weight 108.862 kg 108.862 kg Results 11/19/23 00:54 11/19/23 00:54 Cardiac Enzymes 11/19/23 11/19/23 11/19/23 Range/Units 00:54 00:54 02:40 AST 31 (17-59) U/L Troponin I <0.012 <0.012 (0.000-0.034) ng/mL 11/19/23 Range/Units 06:33 AST (17-59) U/L Troponin I <0.012 (0.000-0.034) ng/mL Coagulation 11/19/23 Range/Units 00:54 PT 11.4 (10.0-12.5) sec APTT 23.0 (22.0-30.0) sec CBC 11/19/23 Range/Units 00:54 WBC 8.9 (3.8-10.6) k/uL RBC 5.06 (4.30-5.90) m/uL Hgb 15.7 (13.0-17.5) gm/dL Hct 46.2 (39.0-53.0) % Plt Count 180 (150-450) k/uL Comprehensive Metabolic Panel 11/19/23 Range/Units 00:54 Sodium 132 L (137-145) mmol/L Potassium 4.0 (3.5-5.1) mmol/L Chloride 94 L (98-107) mmol/L Carbon Dioxide 25 (22-30) mmol/L BUN 23 H (9-20) mg/dL Creatinine 1.31 H (0.66-1.25) mg/dL Glucose 108 H (74-99) mg/dL Calcium 9.3 (8.4-10.2) mg/dL AST 31 (17-59) U/L ALT 28 (4-49) U/L Alkaline Phosphatase 61 (38-126) U/L Total Protein 7.1 (6.3-8.2) g/dL Albumin 4.3 (3.5-5.0) g/dL Current Medications Generic Name Dose Route Start Last Admin Trade Name Freq PRN Reason Stop Dose Admin Amlodipine Besylate 5 mg 11/19/23 09:00 11/19/23 09:13 Amlodipine 5 Mg Tab PO 5 mg DAILY [facility] Administration Aspirin 81 mg 11/19/23 09:00 11/19/23 09:13 Aspirin 81 Mg PO Not Given DAILY [facility] Atorvastatin Calcium 80 mg 11/19/23 21:00 Atorvastatin 80 Mg Tab PO HS [facility] Clopidogrel Bisulfate 75 mg 11/19/23 09:00 11/19/23 09:13 Clopidogrel 75 Mg Tab PO 75 mg DAILY RAJANI Administration Enoxaparin Sodium 40 mg 11/19/23 09:00 11/19/23 09:13 Enoxaparin 40 Mg/0.4 Ml Syringe SQ Not Given DAILY RAJANI Sodium Chloride 1,000 mls @ 75 mls/hr 11/19/23 04:15 11/19/23 04:27 Saline 0.9% IV 75 mls/hr .[id number] RAJANI Administration Naloxone HCl 0.2 mg 11/19/23 02:30 Naloxone 0.4 Mg/Ml 1 Ml Vial IV Q2M PRN Opioid Reversal Intake and Output 11/18/23 11/19/23 11/19/23 22:59 06:59 14:59 Other: Weight 108.862 kg 108.862 kg Patient Weight 11/20/23 06:59 Weight 108.862 kg 11/19/23 00:54 11/19/23 00:54
[2023-11-19] MEDS ORDERED: SUCRALFATE 1 GM TAB PO PRN (11:12)
[2023-11-19] MEDS ORDERED: REGADENOSON 0.4 MG/5 ML SYRINGE IV ONE (12:00)
--- NOTE | 2023-11-19 12:14 | CA ---
Transthoracic Echo Report Name: Richard Cisneros Age: 73 Gender: M : 1950 Exam Date: 11/19/2023 08:45 Exam Location: [facility] Ht (in): 73 Wt (lb): 240 Ordering Physician: Jt Muse MD Attending/Referring Phys: [employer] Seferino [place] Procedure CPT: Indications: Chest Pain Cardiac Hx: Technical Quality: Technically difficult study Contrast 1: Definity Total Dose (mL): 2 Contrast 2: Total Dose (mL): MEASUREMENTS (Male / Female) Normal Values 2D ECHO LV Diastolic Diameter PLAX 3.4 cm 4.2 - 5.9 / 3.9 - 5.3 cm LV Systolic Diameter PLAX 2.5 cm IVS Diastolic Thickness 1.5 cm 0.6 - 1.0 / 0.6 - 0.9 cm LVPW Diastolic Thickness 1.5 cm 0.6 - 1.0 / 0.6 - 0.9 cm LV Relative Wall Thickness 0.9 RV Internal Dim ED PLAX 3.2 cm LVOT Diameter 2.3 cm Aortic Root Diameter 2.6 cm LA Systolic Diameter LX 2.3 cm 3.0 - 4.0 / 2.7 - 3.8 cm LV Diastolic Volume MOD 4C 81.4 cm??? LV Systolic Volume MOD 4C 20.3 cm??? LV Ejection Fraction MOD 4C 75.1 % LV Cardiac Index MOD 4C 1250.4 cm???/min???m??? LV Diastolic Length 4C 8.0 cm LV Systolic Length 4C 6.5 cm LA Volume 52.1 cm??? 18 - 58 / 22 - 52 cm??? LA Volume Index 21.7 cm???/m??? 16 - 28 cm???/m??? Ascending Aorta Diameter 3.1 cm DOPPLER AV Peak Velocity 145.2 cm/s AV Peak Gradient 8.4 mmHg LVOT Peak Velocity 83.6 cm/s LVOT Peak Gradient 2.8 mmHg LVOT Velocity Time Integral 22.7 cm LVOT Stroke Volume 92.4 cm??? LVOT Stroke Volume Index 39.8 ml/m??? LVOT Cardiac Index 1890.3 cm???/min???m??? AV Area Cont Eq pk 2.3 cm??? MV Peak Velocity 96.3 cm/s MV Peak Gradient 3.7 mmHg MV Mean Velocity 45.9 cm/s MV Mean Gradient 1.1 mmHg MV Velocity Time Integral 45.1 cm MR Peak Velocity 219.8 cm/s MR Peak Gradient 19.3 mmHg Mitral E Point Velocity 83.0 cm/s Mitral A Point Velocity 97.3 cm/s Mitral E to A Ratio 0.9 MV Deceleration Time 267.6 ms MV E' Velocity 6.4 cm/s Mitral E to MV E' Ratio 12.9 TR Peak Velocity 230.2 cm/s TR Peak Gradient 21.2 mmHg Right Ventricular Systolic Press 26.2 mmHg PV Peak Velocity 96.7 cm/s PV Peak Gradient 3.7 mmHg FINDINGS Left Ventricle Normal LV size. Moderate concentric LVH . Left ventricular ejection fraction is estimated at 55-60 %.normal left ventricular wall motion. Normal left ventricular diastolic filling pattern. Right Ventricle Normal right ventricular size. Right Atrium Normal right atrial size. Left Atrium Normal left atrial size. Mitral Valve Structurally normal mitral valve. Mild MR. Aortic Valve Trileaflet aortic valve. Tricuspid Valve Tricuspid valve not well visualized.mild tricuspid regurgitation. Pulmonic Valve Pulmonic valve not well visualized. Trace pulmonic regurgitation. Pericardium Not well visualzed. Aorta Normal size aortic root and proximal ascending aorta. CONCLUSIONS Technically difficult study. Definity ECHO contrast used for improved visualization of the endocardial borders (inadequate visualization of two or more contiguous segments). Normal left ventricular size and systolic function Mild mitral and tricuspid regurgitation Previewed by: Dr. Joni Walker MD (Electronically Signed) Final Date: 19 November 2023 12:13
--- NOTE | 2023-11-19 13:22 | NM ---
EXAMINATION TYPE: NM stress lexiscan cardiolite DATE OF EXAM: 11/19/2023 COMPARISON: NONE CLINICAL INDICATION: Male, 73 years old with history of CP; TECHNIQUE: After the intravenous administration of 10.8 mCi Tc 99m Sestamibi - Cardiolite resting SP ECT images acquired 45 minutes post injection. The patient received 0.4mg Lexiscan, 25.8 mCi Tc 99m Sestamibi - Stress images obtained [address] injection FINDINGS: Review of stress and rest SPECT images demonstrates no distinct perfusion abnormality. Gated analysi s shows normal wall motion with an estimated left ventricular ejection fraction of 67 %. IMPRESSION: No scintigraphic evidence for reversible ischemia.
[2023-11-19 14:04] VITALS: BP 159/83; PULSE 53; RESP 14; TEMP 97.9
--- NOTE | 2023-11-19 14:06 | P.DS ---
Providers Date of admission: 11/19/23 02:30 Expected date of discharge: 11/19/23 Attending physician: Luis Russo MD Consults: 11/19/23 02:30 Consult Physician Routine Consulting Provider: [facility] Consult Reason/Comments: chest pain Do you want consulting provider notified?: Yes Primary care physician: [facility] Course: Discharge Diagnosis: Costochondritis Atypical chest pain Acute kidney injury Hypertension Mild hyponatremia History of BPH Hospital Course: 73-year-old male with a PMH of CAD status post multiple stents who presents to the emergency room with complaints of left-sided chest and arm pain. Chest x-ray in the emergency room was unremarkable with EKG showing sinus bradycardia at 49 bpm with poor R-wave progression. Laboratory evaluation revealed a troponin of less than 0.012, BUN 23, creatinine 1.31 (baseline 1.0), sodium 132, and chloride 94. Cardiology consulted. Echocardiogram showed normal LV size and systolic function, mild mitral and tricuspid regurgitation. Lexiscan stress test was negative. Troponin negative 3. Bladder scan did not show any urinary retention. Patient to follow-up with PCP and repeat BMP in 3-4 days, and also follow-up with cardiology outpatient. Also needs further adjustment for antihypertensives. Chlorthalidone discontinued due to acute kidney injury, started on amlodipine. Also avoid NSAIDs. Patient seen and examined at bedside. Vital signs reviewed and stable. General: nontoxic, no distress, appears at stated age Derm: warm, dry Head: atraumatic, normocephalic, symmetric Eyes: EOMI, no lid lag, anicteric sclera Mouth: no lip lesion, mucus membranes moist Cardiovascular: S1S2 reg, no murmur Lungs: CTA bilateral, no rhonchi, no rales , no accessory muscle use Abdominal: soft, nontender to palpation, no guarding, no appreciable organomegaly Ext: no gross muscle atrophy, no edema, no contractures Neuro: CN II-XI grossly intact, no focal neuro deficits Psych: Alert, oriented, appropriate affect A total of 33 minutes of time were spent preparing this complex discharge summary. Patient was discharged on 11/19/23 at 1405. Patient Condition at Discharge: Stable Plan - Discharge Summary Discharge Rx Participant: No New Discharge Prescriptions: New amLODIPine [Norvasc] 10 mg PO DAILY #100 tab Continue atenoloL [Tenormin] 50 mg PO BID Sucralfate [Carafate] 1 gm PO ACHS PRN PRN Reason: abdominal pain ALPRAZolam [Xanax] 0.25 mg PO BID PRN PRN Reason: Anxiety Clopidogrel [Plavix] 75 mg PO DAILY #90 tablet Nitroglycerin Sl Tabs [Nitrostat] 0.4 mg SUBLINGUAL Q5M PRN #30 tab PRN Reason: Chest Pain Atorvastatin [Lipitor] 40 mg PO HS Omeprazole [PriLOSEC] 40 mg PO DAILY Discontinued Chlorthalidone 25 mg PO DAILY cefUROXime axetiL [Ceftin] 500 mg PO DIRECTED Meloxicam [Mobic] 15 mg PO DAILY Discharge Medication List atenoloL [Tenormin] 50 mg PO BID 02/03/19 [History] Omeprazole [PriLOSEC] 40 mg PO DAILY 03/12/22 [History] Sucralfate [Carafate] 1 gm PO ACHS PRN 03/12/22 [History] ALPRAZolam [Xanax] 0.25 mg PO BID PRN 12/27/22 [History] Clopidogrel [Plavix] 75 mg PO DAILY #90 tablet 01/02/23 [Rx] Nitroglycerin Sl Tabs [Nitrostat] 0.4 mg SUBLINGUAL Q5M PRN #30 tab 01/23/23 [Rx] Atorvastatin [Lipitor] 40 mg PO HS 11/19/23 [History] amLODIPine [Norvasc] 10 mg PO DAILY #100 tab 11/19/23 [Rx] Follow up Appointment(s)/Referral(s): Fabricio Pettit DO [STAFF PHYSICIAN] - 1 Week Roger Mcmanus DO [Primary Care Provider] - 1-2 days Patient Instructions/Handouts: Chest Pain (DC), Acute Kidney Injury (DC), Chronic Hypertension (DC), Mediterranean Diet (DC) Activity/Diet/Wound Care/Special Instructions: Please see your PCP and cardiology. You will need repeat blood work to check your kidney function. You may need further BP med adjustments. Discharge Disposition: HOME SELF-CARE
[2023-11-19 14:09] LABS: BUN/Creat Ratio 14.54 Ratio (12.00-20.00); Blood Urea Nitrogen 18.9 mg/dL (9.0-27.0); Calcium 9.3 mg/dL (8.7-10.3); Carbon Dioxide 23.7 mmol/L (21.6-31.8); Chloride 98 mmol/L (96-109); Glucose 117 mg/dL (70-110); Potassium 4.2 mmol/L (3.5-5.5); Sodium 134 mmol/L (135-145)
[2023-11-19] MEDS ORDERED: ATORVASTATIN 80 MG TAB PO SCH (21:00)
[2023-11-19] MEDS ORDERED: atenoloL 50 MG TAB PO SCH (21:00)
[2023-11-20] MEDS ORDERED: PANTOPRAZOLE 40 MG TABLET PO SCH (07:30)
== END 2023-11-19 14:53 | disposition home or self-care (01) ==
LOC: EC 00:27 → 6NMEDSUR 02:30
PROVIDERS: ADMIT Internal Medicine; ATTEND Internal Medicine
DX: M94.0 Chondrocostal junction syndrome [Tietze] (principal); N17.9 Acute kidney failure, unspecified; T50.2X5A Adverse effect of carbonic-anhydrase inhibitors, benzothiadiazides and other diuretics, initial encounter; E87.1 Hypo-osmolality and hyponatremia; E87.8 Other disorders of electrolyte and fluid balance, not elsewhere classified; I10 Essential (primary) hypertension; I25.10 Atherosclerotic heart disease of native coronary artery without angina pectoris; I08.1 Rheumatic disorders of both mitral and tricuspid valves; K21.9 Gastro-esophageal reflux disease without esophagitis; M79.602 Pain in left arm; H35.30 Unspecified macular degeneration; E78.5 Hyperlipidemia, unspecified; R00.1 Bradycardia, unspecified; N40.0 Benign prostatic hyperplasia without lower urinary tract symptoms; Z79.02 Long term (current) use of antithrombotics/antiplatelets; Z79.1 Long term (current) use of non-steroidal anti-inflammatories (NSAID); Z79.82 Long term (current) use of aspirin; Z79.899 Other long term (current) drug therapy; Z95.5 Presence of coronary angioplasty implant and graft; Z98.42 Cataract extraction status, left eye; Z87.11 Personal history of peptic ulcer disease; Z90.49 Acquired absence of other specified parts of digestive tract; Z87.891 Personal history of nicotine dependence; Z80.9 Family history of malignant neoplasm, unspecified
CPT/HCPCS: 99285; 36415; 93005; 93017; 93306; 80053; 80048; 83735; 84484; 85025; 85610; 85730; 71046; 78452; G0378; A9500; Q9957; J2785

== ENCOUNTER 2024-02-12 12:54 | Day surgery (SDC) | payer MEDICARE ==
--- NOTE | 2024-02-11 09:52 | P.HPOR ---
History of Present Illness H&P Date: 02/11/24 Subjective: This is a 73 year old male that presents today for initial evaluation regarding a several month history of left middle finger pain swelling and stiffness. [facility] previously saw [facility] and presents today for a second opinion. He notes inability to make a full fist. Physical Examination: LUE: AIN/PIN/Radial/Ulnar/Median motor intact. Radial/Ulnar/Median SILT. 2+/4 Radial/Ulnar pulses palpated. 5/5 APB, 5/5 FDI. Negative Finkelsteins, negative CMC grind, negative Durkan's compression. Left middle finger TTP over A1 melissa with locking catching and clicking. Impression: 1.) Left middle finger trigger finger Plan: Diagnosis and treatment options were discussed with the patient. We discussed the steroid injection verse A1 melissa release and he wishes to proceed with surgical intervention in the form of a left middle finger A1 melissa release. Risks and benefits of surgery including bleeding, infection, damage to surrounding tissue, need for further surgery, residual numbness were discussed and the patient wished to go forward with surgery. The patient was agreeable with this plan. CC: Roger Mcmanus D.O. -Sanjay Mccoy DO Orthopedic Hand/Upper Extremity Surgeon Past Medical History Past Medical History: Chest Pain / Angina, Eye Disorder, GERD/Reflux, Hyperlipidemia, Hypertension Additional Past Medical History / Comment(s): Bilateral macular degeneration, gastric ulcers, diarrhea, upper back pain. 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 Date of Last Stent Placement:: 01/01/23 Smoking Status: Former smoker - Past Family History Mother Family Medical History: Cancer Medications and Allergies Home Medications Medication Instructions Recorded Confirmed Type atenoloL [Tenormin] 50 mg PO HS 02/03/19 02/05/24 History Omeprazole [PriLOSEC] 40 mg PO HS 03/12/22 02/05/24 History Sucralfate [Carafate] 1 gm PO ACHS PRN 03/12/22 02/05/24 History ALPRAZolam [Xanax] 0.25 mg PO BID PRN 12/27/22 02/05/24 History Nitroglycerin Sl Tabs [Nitrostat] 0.4 mg SUBLINGUAL Q5M PRN #30 tab 01/23/23 02/05/24 Rx Atorvastatin [Lipitor] 40 mg PO QAM 11/19/23 02/05/24 History Allergies Allergy/AdvReac Type Severity Reaction Status Date / Time No Known Allergies Allergy Verified 02/05/24 16:01 Physical Examination Osteopathic Statement: *. No significant issues noted on an osteopathic structural exam other than those noted in the History and Physical/Consult.
[~2024-02-12 12:54] MED LIST changes: -CHLORHEXIDINE GLUCONATE 15 ML CUP MUCOUS MEM PRN; -DEXAMETHASONE SOD PHOSPHATE 4 MG/ML 1 ML VIAL IV ONE; -GABAPENTIN 300 MG CAP PO PRN; -HEPARIN SODIUM,PORCINE/PF 5,000 UNIT/0.5 ML SYRINGE SQ PRN; -HYDROmorphone 0.5 MG/0.5 ML SYRINGE IVP PRN; -MELOXICAM 7.5 MG TAB PO PRN; -MIDAZOLAM 2 MG/2 ML VIAL IV PRN; -ONDANSETRON 4 MG/2 ML VIAL IVP ONE; -PANTOPRAZOLE 40 MG/10 ML VIAL IVP PRN; +Pre Op ABX Message 1 EACH MISC MISCELLANE ONE; -TAMSULOSIN 0.4 MG CAP.ER.24H PO PRN
[2024-02-12] MEDS: LACTATED RINGERS 1,000 ML IV SCH (13:35)
[2024-02-12 13:59] VITALS: TEMP 97.1
[2024-02-12] MEDS: LIDOCAINE 2% INJ 20 MG/ML SQ ONE ×2 (14:11→14:18)
[2024-02-12] MEDS: BUPIVACAINE (PF) 0.5% 30 ML VIAL SQ ONE ×2 (14:11→14:18)
[2024-02-12] MEDS ORDERED: fentaNYL (PF) 50 MCG/ML 2 ML AMP ONE (14:12)
[2024-02-12] MEDS ORDERED: MIDAZOLAM 2 MG/2 ML VIAL ONE (14:12)
--- NOTE | 2024-02-12 14:33 | P.OP ---
Date of Procedure: 02/12/24 Preoperative Diagnosis: Left middle finger trigger finger Postoperative Diagnosis: Left middle finger trigger finger Procedure(s) Performed: Left middle finger A1 melissa release Anesthesia: MAC Surgeon: Sanjay Mccoy Java Programmer #1: Jaswant Rodriguez Estimated Blood Loss (ml): 0 Pathology: none sent Condition: stable Disposition: PACU Description of Procedure: This is a 73 year old female who presents today for a left middle trigger finger A1 melissa release after having failed conservative treatment. Risks and benefits of surgery were discussed with the patient including bleeding, damage to surrounding tissue, infection, need for further surgery as well as risks of anesthesia including pulmonary embolism and even and the patient wished to proceed with surgical intervention. The patient was seen in the pre-operative area by myself. Consent and H&P were completed and updated. The correct extremity was marked in the pre-operative area by myself and all other questions were answered. Operative Narrative: The patient was brought to the operating room by the department of anesthesia. They remained on the portable stretcher and a rolling hand table was brought to the side of the operative extremity. Pre-operative time out was performed indicating the correct patient, procedure and laterality. All in the room agreed. Pre-operative antibiotics were given prior to skin incision. The patient was then drifted off to sleep by the department of anesthesia. MAC anesthesia was utilized and a 50:50 mixture of 1% Lidocaine and 0.5% bupivacaine was injected into the subcutaneous tissues of the palmar skin, 4ccs total. A nonsterile tourniquet was then applied to the operative extremity and the left upper extremity was then prepped and draped in normal sterile fashion. The operative extremity was the exsanguinated with an esmarch bandage and the tourniquet was inflated to 250mmHg. Oblique incision was made at the base of the middle finger. Blunt dissection was taken down to the level of the A1 melissa. Ragnell retractors were placed both radially and ulnarly to protect neurovascular bundles. Littler tenotomy scissors were then used to release the A1 melissa from proximal to distal under direct visualization. Proximal fascial attachments were released. The tendon was then taken through range of motion and no locking or catching was appreciated. The wound was then closed with interrupted 4-0 nylon sutures in a horizontal mattress fashion. Sterile dressing consisting of adaptic, 4x4s, webril, and an jacky wrap was applied. Tourniquet was let down and the hand was immediately well perfused. The patient was then woken by the department of anesthesia and transferred to PACU in stable condition. Sanjay Mccoy D.O. Orthopedic Hand/Upper Extremity Surgeon
[2024-02-12 15:17] VITALS: BP 137/69; PULSE 52; RESP 16
== END 2024-02-12 15:13 | disposition home or self-care (01) ==
LOC: OR 12:54
PROVIDERS: ATTEND Orthopaedic Surgery Hand Surgery
DX: M65.332 Trigger finger, left middle finger (principal); K21.9 Gastro-esophageal reflux disease without esophagitis; I10 Essential (primary) hypertension; E78.5 Hyperlipidemia, unspecified; Z87.11 Personal history of peptic ulcer disease; Z90.49 Acquired absence of other specified parts of digestive tract; Z90.89 Acquired absence of other organs; Z95.5 Presence of coronary angioplasty implant and graft; Z98.890 Other specified postprocedural states; Z87.891 Personal history of nicotine dependence; Z79.899 Other long term (current) drug therapy
CPT/HCPCS: 26055; J2001; J2250; J3010; J0665

== ENCOUNTER → 2024-03-20 | Outpatient (CLI) | payer MEDICARE ==
--- NOTE | 2024-03-20 15:25 | XR ---
EXAMINATION TYPE: XR cervical spine comp DATE OF EXAM: 03/20/2024 3:16 PM CLINICAL INDICATION:Male, 73 years old with history of [id number] RT SHLD PAIN,CERVICALGI A,DD; [facility] COMPARISON: None TECHNIQUE: The cervical spine was imaged in frontal, lateral, odontoid and bilateral oblique. FINDINGS: The osseous structures show normal alignment without evidence of an acute fracture. There are osteoph ytes noted throughout the cervical spine on the anterior and lateral aspects of the vertebral bodies. The intervertebral disk spaces are narrowed at multiple levels. Pedicles are intact. Soft tissues a re within normal limits. The odontoid appears intact. IMPRESSION: 1. No fracture or dislocation. 2. Mild degenerative disc disease changes of the cervical spine.
--- NOTE | 2024-03-20 17:44 | XR ---
EXAMINATION TYPE: XR shoulder complete RT DATE OF EXAM: 03/20/2024 3:16 PM CLINICAL INDICATION:Male, 73 years old with history of [id number] RT SHLD PAIN,CERVICALGI A,DD; [facility] COMPARISON: None TECHNIQUE: XR shoulder complete RT; examined in AP, internally rotated and scapular Y projections. FINDINGS: No evidence of acute osseous pathology, joint dislocation, or soft tissue swelling. The remaining po rtions of the visualized chest are unremarkable. Mild degeneration changes of the acromion, distal c lavicle with osteophyte formation. There is osteophyte formation of the glenoid and humeral head. The re is joint space narrowing of glenohumeral joint IMPRESSION: 1. No acute osseous pathology. 2. Mild shoulder osteoarthrosis.
== END | disposition home or self-care (01) ==
LOC: RADXRYALE 14:57
PROVIDERS: ATTEND Family Medicine
DX: M50.30 Other cervical disc degeneration, unspecified cervical region (principal); M19.011 Primary osteoarthritis, right shoulder; R20.2 Paresthesia of skin
CPT/HCPCS: 72050

== ENCOUNTER 2025-06-16 09:46 | Day surgery (SDC) | payer MEDICARE ==
[2025-06-15 08:41] VITALS: BMI 33.0
--- NOTE | 2025-06-16 09:43 | P.GSHP ---
History of Present Illness H&P Date: 06/16/25 CHIEF COMPLAINT: GERD and dysphagia HISTORY OF PRESENT ILLNESS: The patient is a 74-year-old male who presents reports gastroesophageal reflux disease and dysphagia. Upper endoscopy was offered for further evaluation and management. PAST MEDICAL HISTORY: Please see list. PAST SURGICAL HISTORY: Please see list. MEDICATIONS: Please see list. ALLERGIES: Please see list. SOCIAL HISTORY: No illicit drug use FAMILY HISTORY: No reports of Crohn disease or ulcerative colitis. REVIEW OF ORGAN SYSTEMS: CONSTITUTIONAL: No reports of fevers or chills. GI: Denies any blood in stools or constipation. PHYSICAL EXAM: VITAL SIGNS: Stable GENERAL: Well-developed and pleasant in no acute distress. HEENT: No scleral icterus. Extraocular movements grossly intact. Moist buccal mucosa. NECK: Supple without lymphadenopathy. CHEST: Unlabored respirations. Equal bilateral excursions. CARDIOVASCULAR: Regular rate and rhythm. Distal 2+ pulses. ABDOMEN: Soft, nondistended. MUSCULOSKELETAL: No clubbing, cyanosis, or edema. ASSESSMENT: 1. Gastroesophageal reflux disease 2. Dysphagia PLAN: 1. Recommend proceeding with an upper endoscopy Past Medical History Past Medical History: Chest Pain / Angina, Eye Disorder, GERD/Reflux, Hyperli pidemia, Hypertension Additional Past Medical History / Comment(s): Bilateral macular degeneration, gastric ulcers, diarrhea, upper back pain. 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 Date of Last Stent Placement:: 01/01/23,-2022 Smoking Status: Former smoker - Past Family History Mother Family Medical History: Cancer, Diabetes Mellitus Additional Family Medical History / Comment(s): macular degeneration Father Family Medical History: Myocardial Infarction (VT) Medications and Allergies Home Medications Medication Instructions Recorded Confirmed Type atenoloL [Tenormin] 50 mg PO HS 02/03/19 06/15/25 History Omeprazole [PriLOSEC] 40 mg PO HS 03/12/22 06/15/25 History Sucralfate [Carafate] 1 gm PO ACHS PRN 03/12/22 06/15/25 History ALPRAZolam [Xanax] 0.25 mg PO BID PRN 12/27/22 06/15/25 History Nitroglycerin Sl Tabs [Nitrostat] 0.4 mg SUBLINGUAL Q5M PRN #30 tab 01/23/23 06/15/25 Rx Atorvastatin [Lipitor] 40 mg PO QAM 11/19/23 06/15/25 History Aspirin 650 mg PO DAILY PRN 06/15/25 06/15/25 History Ferrous Sulfate [Feosol] 325 mg PO DAILY 06/15/25 06/15/25 History Magnesium Oxide [Magnesium] 500 mg PO DAILY 06/15/25 06/15/25 History Meloxicam [Mobic] 15 mg PO DAILY 06/15/25 06/15/25 History Potassium Gluconate 99 mg PO DAILY 06/15/25 06/15/25 History cefuroxime axetiL [Ceftin] 500 mg PO BID 06/15/25 06/15/25 History Allergies Allergy/AdvReac Type Severity Reaction Status Date / Time No Known Allergies Allergy Verified 06/15/25 08:29
[2025-06-16] MEDS: IV FLUID CONTINUATION 1,000 ML IV ONE (11:11)
[2025-06-16] MEDS: LACTATED RINGERS 1,000 ML IV SCH (11:11)
[2025-06-16 11:13] VITALS: TEMP 97.4
[2025-06-16] MEDS ORDERED: PROPOFOL 10 MG/ML 20 ML VIAL IV ONE (11:57)
[2025-06-16 12:18] VITALS: RESP 16
--- NOTE | 2025-06-16 12:20 | P.PCN ---
Date of Procedure: 06/16/25 Description of Procedure: PREOPERATIVE DIAGNOSIS: Gastroesophageal reflux disease. Dysphagia POSTOPERATIVE DIAGNOSIS: Gastroesophageal reflux disease. Esophageal spasm Gastritis. OPERATION: Esophagogastroduodenoscopy with cold forceps biopsies along esophagus, antrum and duodenum SURGEON: Sarah Dominguez MD ANESTHESIA: MAC. INDICATIONS: The patient is a 74-year-old male who presents with dysphagia and reflux disease. Benefits and risks of the procedure were described. Informed consent was obtained. DESCRIPTION: The patient was brought into the endoscopy suite and laid in the left lateral decubitus position. An Olympus gastroscope was passed along the posterior oropharynx down to the distal esophagus where the squamocolumnar junction was encountered at 43 cm from the incisors. The stomach was entered and no bile reflux was found. Additional findings are listed below. Biopsies with cold forceps were obtained of the antrum. The first through third portion of the duodenum was examined. Retroflexion of the scope confirmed Hill grade 2 lower esophageal valve. The squamocolumnar junction demonstrated LA grade B erosive esophagitis. The stomach was desufflated. The patient tolerated the procedure well. FINDINGS: Squamocolumnar junction 43 cm from the incisors. Diaphragmatic hiatus at 43 cm. Hill grade 2 lower esophageal valve. LA grade B erosive esophagitis. Biopsies obtained Biopsies obtained of the duodenum. Chronic gastritis with biopsies obtained. RECOMMENDATIONS: May benefit from esophagram including dilation Plan - Discharge Summary Discharge Rx Participant: No New Discharge Prescriptions: Continue atenoloL [Tenormin] 50 mg PO HS Sucralfate [Carafate] 1 gm PO ACHS PRN PRN Reason: abdominal pain ALPRAZolam [Xanax] 0.25 mg PO BID PRN PRN Reason: Anxiety Nitroglycerin Sl Tabs [Nitrostat] 0.4 mg SUBLINGUAL Q5M PRN #30 tab PRN Reason: Chest Pain Atorvastatin [Lipitor] 40 mg PO QAM Aspirin 650 mg PO DAILY PRN PRN Reason: Headache Meloxicam [Mobic] 15 mg PO DAILY Magnesium Oxide [Magnesium] 500 mg PO DAILY Omeprazole [PriLOSEC] 40 mg PO HS Potassium Gluconate 99 mg PO DAILY Ferrous Sulfate [Iron (65 MG Elemental)] 325 mg PO DAILY cefuroxime axetiL [Ceftin] 500 mg PO BID Discharge Medication List atenoloL [Tenormin] 50 mg PO HS 02/03/19 [History] Omeprazole [PriLOSEC] 40 mg PO HS 03/12/22 [History] Sucralfate [Carafate] 1 gm PO ACHS PRN 03/12/22 [History] ALPRAZolam [Xanax] 0.25 mg PO BID PRN 12/27/22 [History] Nitroglycerin Sl Tabs [Nitrostat] 0.4 mg SUBLINGUAL Q5M PRN #30 tab 01/23/23 [Rx] Atorvastatin [Lipitor] 40 mg PO QAM 11/19/23 [History] Aspirin 650 mg PO DAILY PRN 06/15/25 [History] Ferrous Sulfate [Iron (65 MG Elemental)] 325 mg PO DAILY 06/15/25 [History] Magnesium Oxide [Magnesium] 500 mg PO DAILY 06/15/25 [History] Meloxicam [Mobic] 15 mg PO DAILY 06/15/25 [History] Potassium Gluconate 99 mg PO DAILY 06/15/25 [History] cefuroxime axetiL [Ceftin] 500 mg PO BID 06/15/25 [History] Follow up Appointment(s)/Referral(s): Sarah Dominguez MD [STAFF PHYSICIAN] - 07/13/25 4:45 pm Patient Instructions/Handouts: GERD (Gastroesophageal Reflux Disease) (DC) Discharge Disposition: HOME SELF-CARE
[2025-06-16 12:30] VITALS: BP 139/73; PULSE 47
== END 2025-06-16 13:37 | disposition home or self-care (01) ==
LOC: ORWHC2ENDO 09:46
PROVIDERS: ATTEND Surgery Plastic and Reconstructive Surgery
DX: K29.50 Unspecified chronic gastritis without bleeding (principal); K21.00 Gastro-esophageal reflux disease with esophagitis, without bleeding; K44.9 Diaphragmatic hernia without obstruction or gangrene; I10 Essential (primary) hypertension; K22.4 Dyskinesia of esophagus; E78.5 Hyperlipidemia, unspecified; Z87.11 Personal history of peptic ulcer disease; Z87.891 Personal history of nicotine dependence; Z90.49 Acquired absence of other specified parts of digestive tract; Z90.89 Acquired absence of other organs; Z95.5 Presence of coronary angioplasty implant and graft; Z79.899 Other long term (current) drug therapy
CPT/HCPCS: 88305; 43239; J2704